=== PATIENT | male | born 1955 | race Caucasian/White ===

== ENCOUNTER 2019-12-31 17:28 | Inpatient (IN) | payer MEDICARE, MEDICAID, SELFPAY ==
--- NOTE | ~2019-12-31 | US_ITS ---
EXAMINATION: US arterial ankle brachial ind DATE: 01/01/2020 13:26 INDICATION: Redness of both anterior lower legs. Diabetes. Hypertension. Smoker. TECHNIQUE: Segmental pressures and plethysmographic and Doppler waveforms of the brachial and lower e xtremity arteries were obtained. COMPARISON: None. FINDINGS: Right and left brachial artery pressures of 109 mm Hg and 106 mm Hg, respectively, are concordant (no rmal difference <= 30 mmHg). The right ankle-brachial index (WATSON) is 1.00 (normal >= 0.9-1.0). The right great toe-brachial index (TBI) is 1.19 (normal >= 0.65). Arterial Doppler waveforms are biphasic. The left WATSON is 1.09. The left TBI is 1.25. Arterial Doppler waveforms are biphasic. IMPRESSION: Bilateral normal WATSON and TBI Reviewed, dictated and finalized at Location [facility]. Reviewed, dictated and finalized at location B.
--- NOTE | ~2019-12-31 | XR_ITS ---
EXAMINATION: XR foot LT min 3V EXAM DATE: 12/31/2019 18:41 INDICATION: Infection, left foot pain, large ulceration. Diabetes. TECHNIQUE: Left foot dorsoplantar, lateral and oblique projections obtained and reviewed. There is n o prior study for comparison. FINDINGS: Left metatarsal bones unremarkable. There are no acute fractures or dislocations identifie d. There is no subcutaneous gas. Large amount of swelling suspected over the dorsal aspect of the m etatarsal bones. There are no bony erosions identified. There are no radiopaque foreign bodies. IMPRESSION: 1. XR foot LT min 3V exam without acute osseous findings. 2. Soft tissue swelling. Reviewed, dictated and finalized at location A.
--- NOTE | ~2019-12-31 | US_ITS ---
EXAMINATION: US venous doppler [facility] DATE: 01/01/2020 13:25 INDICATION: Left lower limb pain. TECHNIQUE: Grayscale ultrasound images without and with compression and Doppler ultrasound images of the bilateral lower extremity veins were obtained. COMPARISON: None. FINDINGS: The visualized portions of right common femoral vein, profunda (deep) femoral vein, femoral vein, pop liteal vein, peroneal veins, posterior tibial veins, and greater saphenous vein outflow are patent. The visualized portions of left common femoral vein, profunda femoral vein, femoral vein, popliteal v ein, peroneal veins, posterior tibial veins, and greater saphenous vein outflow are patent. IMPRESSION: 1. No deep venous thrombosis. Reviewed, dictated and finalized at location A.
[2019-12-31 17:28] VITALS: BP 148/69; PULSE 75; RESP 18; TEMP 36.6; O2SAT 94
--- NOTE | 2019-12-31 17:56 | ED.LOWEXIN ---
HPI - Extremity Injury (Lower) General Chief Complaint: Extremity Injury, Lower Stated Complaint: foot pain x 2 months Time Seen by Provider: 12/31/19 17:51 Source: patient Mode of arrival: EMS Limitations: no limitations History of Present Illness HPI Narrative: A 64 y/o male presents to the ED, via EMS, with c/o left foot pain. Pt states that the left foot pain started 2 months ago and has been constant since. He notes that he currently has home health and they recently told him he cannot take a shower or get his left foot wet, but he is unsure why. Pt adds that he has been on multiple antibiotics and has dark black stools. Analisa Becerra NP is his PCP. complaint: foot injury (left) Onset (ago): month(s) (2) Injury: Left: foot Other symptoms: other (dark black stool) Treatments prior to arrival: other (home health) Related Data Home Medications Medication Instructions Recorded Confirmed albuterol sulfate [Ventolin HFA] 2 puff INHALATION QID PRN 12/31/19 aspirin 325 mg PO DAILY 12/31/19 12/31/19 buspirone 15 mg PO BID 12/31/19 clopidogrel 75 mg PO DAILY 12/31/19 ergocalciferol (vitamin D2) 1,250 mcg PO WEEKLY 12/31/19 [Vitamin D2] fenofibrate nanocrystallized 145 mg PO DAILY 12/31/19 qvlzcavullu-vxhsqqjgk-ndqspwxa 1 inh INHALATION DAILY 12/31/19 [Trelegy Ellipta] ijksplrfczg-gfweditdi-nqoszwwv 1 inh INHALATION DAILY 12/31/19 12/31/19 [Trelegy Ellipta] furosemide 40 mg PO BID 12/31/19 gemfibrozil 600 mg PO BID 12/31/19 glimepiride 1 mg PO DAILY 12/31/19 icosapent ethyl [Vascepa] 2 g PO BID 12/31/19 ipratropium-albuterol 3 ml INHALATION Q4H PRN 12/31/19 isosorbide mononitrate 30 mg PO DAILY 12/31/19 isosorbide mononitrate 60 mg PO DAILY 12/31/19 levothyroxine 50 mcg PO DAILY 12/31/19 losartan 25 mg PO DAILY 12/31/19 methylprednisolone 0 mg PO PER PKG DIR 12/31/19 nitroglycerin 0.3 mg SUBLINGUAL Q5M PRN 12/31/19 pregabalin 50 mg PO BID 12/31/19 sertraline 25 mg PO DAILY 12/31/19 spironolactone 25 mg PO DAILY 12/31/19 tamsulosin 0.4 mg PO DAILY 12/31/19 Allergies Allergy/AdvReac Type Severity Reaction Status Date / Time amoxicillin Allergy Unknown Rash Verified 12/31/19 17:43 Review of Systems Review of Systems: All systems reviewed & are unremarkable except as noted in HPI and below Gastrointestinal: Gastrointestinal: Reports melena Musculoskeletal: Musculoskeletal: Reports arthralgias (left foot) [facility] Past Medical History Medical History (Updated 12/31/19 @ 20:50 by Luís Frederick MD) Arthritis Chronic back pain HTN (hypertension) Surgical History Surgical History (Updated 12/31/19 @ 18:02 by Malika Zendejas) History of angioplasty Left leg History of cardiac catheterization Social History Social History (Updated 12/31/19 @ 18:00 by Malika Zendejas) Smoking status: Former smoker Smoking end date: 10/02/16 Gender identity (if verbalized by the patient): Male Exam Const: General: healthy appearing, no acute distress and well developed Nutritional Appearance: obese Orientation/consciousness: patient oriented x3 (alert) and Other orientation findings (Alert) Limitations: no limitations HENMT: Head: normocephalic and atraumatic Ears: external ears normal General nose exam: No nasal discharge present and no epistaxis Face and sinus: face symmetric Mouth: Yes lip normal, Yes tongue normal and Yes moist mucous membranes Throat: other (No exudate, no erythema) Eyes: Conjunctivae: conjunctivae normal Sclera: sclerae normal EOM: EOMs intact bilaterally Neck: Neck: full ROM, no lymphadenopathy and supple Thyroid: thyroid normal Chest: Chest palpation & inspection: no tenderness Resp: Effort & Inspection: normal respiratory effort Auscultation: clear to auscultation bilaterally, no rales, no rhonchi, no wheezes and other (breath sounds equal) Cardio: Rate: regular rate Rhythm: regular rhythm Heart sounds: no gallops and no murmurs Peripheral pulses: othe
[2019-12-31 18:53] VITALS: BP 151/80; PULSE 73; RESP 20; O2SAT 95
[2019-12-31 18:54] LABS: Basophils Percent Auto 0.6 % (0.2-1.2); Eosinophils Absolute Auto 0.1 K/mm3 (0-0.3); Eosinophils Percent Auto 1.7 % (0-4.4); Hematocrit 46.6 % (42.0-52.0); Hemoglobin 14.6 g/dL (14.0-18.0); Immature Granulocyte Absolute 0.03 K/mm3 (0.00-0.031); Immature Granulocyte Percent A 0.4 % (0-0.5); Lymphocytes Absolute Auto 1.38 K/mm3 (0.9-3.2); Lymphocytes Percent Auto 19.3 % (18.3-44.2); Mean Corpuscular HGB Conc 31.3 g/dl (32-36); Mean Corpuscular Hemoglobin 29.1 pg (26-34); Mean Corpuscular Volume 92.8 fl (80-100); Mean Platelet Volume 10.3 fl (7.4-10.4); Monocytes Absolute Auto 0.7 K/mm3 (0.1-0.6); Monocytes Percent Auto 9.1 % (2.6-8.5); Neutrophils Absolute Auto 4.9 K/mm3 (1.3-6.7); Neutrophils Percent Auto 68.9 % (45.5-73.1); Platelet Count Result 212 k/mm3 (150-375); Red Blood Count 5.02 M/mm3 (4.6-6.20); Red Cell Distribution Width 14.7 % (11.5-14.5); White Blood Count 7.1 K/mm3 (4.5-10.0)
[2019-12-31 19:06] LABS: Alanine Aminotransferase 14 U/L (4-50); Albumin Level 4.4 g/dL (3.5-5.1); Alkaline Phosphatase 79 U/L (38-126); Aspartate Amino Transferase 33 U/L (17-59); Bilirubin,Total 0.4 mg/dL (0.2-1.3); Blood Urea Nitrogen 22 mg/dL (9-20); Calcium 9.7 mg/dL (8.4-10.2); Carbon Dioxide 34 mmol/L (22-30); Chloride 99 mmol/L (98-107); Estimated CRCL calculation 46 ml/min; Estimated Glomerular Filt Rate 29; Glucose 92 mg/dL (75-110); Sodium 140 mmol/L (137-145)
[2019-12-31] MEDS: SODIUM CHLORIDE 0.9% IV 1,000 ML 60 ML IV CONT (19:41)
[2019-12-31 20:11] VITALS: BP 150/70; PULSE 74; RESP 20; TEMP 36.9; O2SAT 96
[2019-12-31 20:59] VITALS: BP 143/79; PULSE 78; RESP 22; TEMP 36.1; O2SAT 94
[2019-12-31] MEDS: ACETAMINOPHEN 325 MG TABLET 650 MG PO (21:00)
[2019-12-31 21:01] VITALS: BMI 38.9
--- NOTE | 2019-12-31 21:02 | ADMGEN ---
This patient, Yuval Branch I, was admitted to 2 Medical Room 240-. Patient/family oriented to hospital policies and general routines including ID bracelet, bed and alarms, visiting hours, pain management, procedures, bathroom and other care routines, personal items, smoking policy, room service/diet, and visiting hours. Valuables list has been completed. Information on how to activate the Rapid Response Team has been discussed. Patient/Family are encouraged to report perceived risks to care and to ask questions if they do not understand what they are told or what they should do.
[2019-12-31] MEDS: metroNIDAZOLE 500 MG/ISO 100ML 500 MG/100 ML BAG 100 MG IVPB (21:30)
[2019-12-31 22:00] VITALS: BP 143/79; PULSE 78; RESP 22; TEMP 36.1; O2SAT 94
[2019-12-31 23:23] LABS: Glucose Point of Care 81 (65-105)
[2019-12-31] MEDS: IMIPENEM/CILASTATIN SODIUM 250 MG in DEXTROSE 5% 100 ML 300 MG IVPB (23:52)
--- NOTE | 2020-01-01 00:14 | PM.IMHP ---
H&P: HPI History of Present Illness Chief complaint: LEG CELLULITIS Narrative: Yuval Branch I is a 64 year old male who stated that he started having some problems to his left foot back in October. The patient has PTSD and has a provider come to his home as well as a foot doctor. The patient stated back in October was diagnosed with cellulitis by the foot doctor. He stated that he was treated in that he was seen again by the foot doctor last month. He has not followed up since then. He is diabetic. The patient has been in severe pain since October. The patient used to be an IV drug user and did want to use any narcotics. Patient stated he put off coming the hospital as much as possible. He was taking a large dose of Motrin. He has not had a previous history of having any renal disease. Today he came in with severe pain. He said that it felt like his foot had 25 lb of pressure on it and that some air hours foot was 1 other tires. He sees Analisa garcia NP who is a house provider in comes his house to treat him. The patient has had some history of peripheral artery disease with a stent in his right leg. He said he was supposed to have the left 1 done but he could not tolerate the procedure. However he does have a pulse to the left foot and weak went to the right. He has severe pain. Patient has peripheral neuropathy. He is having cramps in his legs. Patient was started on Levaquin and Flagyl. Creatinine is 2.3. Patient has a red area to the left foot with some yellow drainage. No fever or chills. Date of service is 12/31/2019 Review of Systems Review of Systems: Narrative: Patient has PTSD All systems reviewed & are unremarkable except as noted in HPI and below Constitutional: Constitutional: Reports as per HPI and Reports no additional constitutional complaints Eyes: Eyes: Reports as per HPI and Reports no additional eye complaints ENT: Reports system reviewed and no additional complaints, except as documented and Reports Normal hearing present Cardiovascular: Cardiovascular: Reports no additional cardiovascular complaints Respiratory: Respiratory: Reports no additional respiratory complaints and Reports no additional respiratory complaints Gastrointestinal: Gastrointestinal: Reports as per HPI and Reports no additional gastrointestinal complaints Musculoskeletal: Musculoskeletal: Reports no additional musculoskeletal complaints Integumentary/Breasts: Skin/Breast: Reports system reviewed and no additional complaints, except as docu and Reports as per HPI Neurologic: Reports system reviewed and no additional complaints, except as documented, Reports as per HPI and Reports Normal hearing present Psychiatric: Psychiatric: Reports no additional psychiatric complaints and Reports as per HPI Endocrine: Endocrine: Reports no additional endocrine complaints Hematologic/Lymphatic: Hematologic/Lymphatic: Reports no additional hematologic/lymphatic complaints Allergic/Immunologic: Allergic/Immunologic: Reports no additional allergic/immunologic complaints [facility] Past Medical History Medical History (Updated 01/01/20 @ 00:45 by Sarah Ellis NP) Arthritis BPH (benign prostatic hyperplasia) CHF (congestive heart failure), NYHA class I Chronic back pain COPD (chronic obstructive pulmonary disease) DM2 (diabetes mellitus, type 2) Hepatitis Patient stated he was treated HTN (hypertension) Hyperlipidemia Hypothyroidism Neuropathy PAD (peripheral artery disease) Parkinson's disease Pilonidal cyst With multiple surgeries and nonhealing PTSD (post-traumatic stress disorder) Restless leg syndrome Surgical History Surgical History (Updated 01/01/20 @ 00:36 by Sarah Ellis NP) History of angioplasty Left leg History of cardiac catheterization S/P peripheral artery angioplasty with stent placement Family History Family History (Updated 01/01/20 @ 00:37 by Sarah Ellis NP) Father Diabetes mellitus Heart d
[2020-01-01] MEDS: PREGABALIN 50 MG CAPSULE PO ×3 (00:21→23:01)
[2020-01-01] MEDS: busPIRone HCL 5 MG TABLET 15 MG PO ×3 (00:45→17:30)
[2020-01-01 03:54] VITALS: BP 144/78; PULSE 72; RESP 20; TEMP 36.1; O2SAT 96
[2020-01-01] MEDS: IMIPENEM/CILASTATIN SODIUM 250 MG in DEXTROSE 5% 100 ML 300 MG IVPB ×3 (05:34→17:22)
[2020-01-01 05:49] VITALS: BP 144/78; PULSE 68; RESP 20; TEMP 36; O2SAT 95
[2020-01-01 07:54] LABS: Glucose Point of Care 65 (65-105)
[2020-01-01 08:00] VITALS: PULSE 68; RESP 20; O2SAT 95
[2020-01-01 08:04] LABS: Glucose Point of Care 75 (65-105)
[2020-01-01] MEDS: OMEGA 3 POLYUNSAT FATTY ACIDS 1 GM CAP 2 GM PO ×2 (08:18→17:30)
[2020-01-01] MEDS: ISOSORBIDE MONONITRATE 60 MG TAB.ER.24H PO (08:18)
[2020-01-01] MEDS: FENOFIBRATE NANOCRYSTALLIZED 145 MG TABLET PO (08:18)
[2020-01-01] MEDS: SERTRALINE HCL 25 MG TABLET PO (08:19)
[2020-01-01] MEDS: ERGOCALCIFEROL 50,000 UNIT CAPSULE 50000 UNITS PO (08:19)
[2020-01-01] MEDS: TAMSULOSIN HCL 0.4 MG CAPSULE PO (08:20)
[2020-01-01] MEDS: ISOSORBIDE MONONITRATE 30 MG TAB.ER.24H PO (08:20)
[2020-01-01] MEDS: GLIMEPIRIDE 1 MG TABLET PO (08:20)
[2020-01-01] MEDS: CLOPIDOGREL BISULFATE 75 MG TABLET PO (08:20)
[2020-01-01] MEDS: ASPIRIN 325 MG ENTERIC TABLET PO (08:21)
[2020-01-01] MEDS: HYDROMORPHONE HCL 1 MG/ML INJ IV PUSH ×2 (08:21→14:31)
[2020-01-01] MEDS: SODIUM CHLORIDE 0.9% IV 1,000 ML 60 ML IV CONT (08:27)
[2020-01-01 11:48] LABS: Glucose Point of Care 89 (65-105)
[2020-01-01 12:03] LABS: Blood Urea Nitrogen 19 mg/dL (9-20); CRP 5.9 mg/dL (<1.0); Calcium 8.9 mg/dL (8.4-10.2); Carbon Dioxide 26 mmol/L (22-30); Chloride 102 mmol/L (98-107); Estimated CRCL calculation 70 ml/min; Estimated Glomerular Filt Rate 47; Glucose 73 mg/dL (75-110); Potassium 4.2 mmol/L (3.4-5.0); Sodium 137 mmol/L (137-145)
--- NOTE | 2020-01-01 12:19 | PM.IMPN ---
Progress Note: A&P Assessment and Plan (1) Cellulitis of leg: Qualifiers: Laterality: left Qualified Code(s): L03.116 - Cellulitis of left lower limb Code(s): L03.119 - Cellulitis of unspecified part of limb Status: Acute Assessment and Plan: Vanc/Primaxin (2) Chronic foot ulcer: Qualifiers: Laterality: left Non-pressure ulcer stage: unspecified non-pressure ulcer stage Qualified Code(s): L97.529 - Non-pressure chronic ulcer of other part of left foot with unspecified severity Code(s): L97.509 - Non-pressure chronic ulcer of other part of unspecified foot with unspecified severity Status: Chronic Assessment and Plan: Failed outpatient therapy Wound consult Vanc/Primaxin day 1 (3) ARF (acute renal failure): Qualifiers: Acute renal failure type: unspecified Qualified Code(s): N17.9 - Acute kidney failure, unspecified Code(s): N17.9 - Acute kidney failure, unspecified Status: Acute Assessment and Plan: Hold furosemide IVF Baseline creatinine in 2019 was 1.7 F/u lab (4) DM2 (diabetes mellitus, type 2): Qualifiers: Diabetes mellitus retirement insulin use: without intermediate accountant use Diabetes mellitus complication status: with neurologic complications Diabetes mellitus complication detail: with polyneuropathy Qualified Code(s): E11.42 - Type 2 diabetes mellitus with diabetic polyneuropathy Code(s): E11.9 - Type 2 diabetes mellitus without complications Status: Chronic Assessment and Plan: SSI Glimepiride A1c 11, c/w poor control (5) COPD (chronic obstructive pulmonary disease): Qualifiers: COPD type: unspecified COPD Qualified Code(s): J44.9 - Chronic obstructive pulmonary disease, unspecified Code(s): J44.9 - Chronic obstructive pulmonary disease, unspecified Status: Chronic Assessment and Plan: Continue with the inhalers from home (6) PTSD (post-traumatic stress disorder): Code(s): F43.10 - Post-traumatic stress disorder, unspecified Status: Chronic Assessment and Plan: Continue with BuSpar and Zoloft. (7) BPH (benign prostatic hyperplasia): Qualifiers: Lower urinary tract symptom presence: symptoms present Lower urinary tract symptom detail: unspecified Qualified Code(s): N40.1 - Benign prostatic hyperplasia with lower urinary tract symptoms Code(s): N40.0 - Benign prostatic hyperplasia without lower urinary tract symptoms Status: Chronic Assessment and Plan: Continue with tamsulosin (8) Hyperlipidemia: Qualifiers: Hyperlipidemia type: unspecified Qualified Code(s): E78.5 - Hyperlipidemia, unspecified Code(s): E78.5 - Hyperlipidemia, unspecified Status: Chronic Assessment and Plan: Continue with [place] 3, gemfibrozil (9) Neuropathy: Code(s): G62.9 - Polyneuropathy, unspecified Status: Chronic Assessment and Plan: Continue with Lyrica. (10) Restless leg syndrome: Code(s): G25.81 - Restless legs syndrome Status: Chronic Assessment and Plan: Continue Lyrica. (11) CHF (congestive heart failure), NYHA class I: Qualifiers: Congestive heart failure type: diastolic Congestive heart failure chronicity: chronic Qualified Code(s): I50.32 - Chronic diastolic (congestive) heart failure Code(s): I50.9 - Heart failure, unspecified Status: Chronic Assessment and Plan: Holding Lasix due to acute renal failure. (12) Hypothyroidism: Qualifiers: Hypothyroidism type: acquired Qualified Code(s): E03.9 - Hypothyroidism, unspecified Code(s): E03.9 - Hypothyroidism, unspecified Status: Chronic Assessment and Plan: Continue levothyroxine (13) PAD (peripheral artery disease): Code(s): I73.9 - Peripheral vascular disease, unspecified Status: Chronic Asses
[2020-01-01] MEDS: SILVERGEL (ELTA) 45 ML 1 APPLIC TOPICAL (12:28)
[2020-01-01 14:00] VITALS: BP 121/56; PULSE 72; RESP 16; TEMP 36.6; O2SAT 95
--- NOTE | 2020-01-01 15:46 | PCDIET ---
Spoke with patient today per his request. He c/o getting a cold cheeseburger with unmelted cheese and cold fries. He also is on a heart healthy diet and states the MD told him he could have a [facility] diet. I spoke with RN who called MD and diet has now been changed. Details regarding meals will be shared with kitchen management.
[2020-01-01] MEDS: gemfibroziL 600 MG TABLET PO (17:31)
[2020-01-01 18:06] LABS: Glucose Point of Care 97 (65-105)
[2020-01-01 22:00] VITALS: BP 137/70; PULSE 74; RESP 20; TEMP 36.1; O2SAT 92
[2020-01-02 00:25] LABS: Glucose Point of Care 143 (65-105)
[2020-01-02] MEDS: IMIPENEM/CILASTATIN SODIUM 250 MG in DEXTROSE 5% 100 ML 300 MG IVPB ×4 (00:54→18:13)
[2020-01-02] MEDS: ACETAMINOPHEN 325 MG TABLET 650 MG PO (01:42)
[2020-01-02 05:50] LABS: Alanine Aminotransferase 14 U/L (4-50); Albumin Level 3.7 g/dL (3.5-5.1); Alkaline Phosphatase 57 U/L (38-126); Aspartate Amino Transferase 34 U/L (17-59); Basophils Percent Auto 0.4 % (0.2-1.2); Bilirubin,Total 0.3 mg/dL (0.2-1.3); Blood Urea Nitrogen 12 mg/dL (9-20); Carbon Dioxide 32 mmol/L (22-30); Chloride 102 mmol/L (98-107); Eosinophils Absolute Auto 0.2 K/mm3 (0-0.3); Eosinophils Percent Auto 3.8 % (0-4.4); Estimated CRCL calculation 86 ml/min; Estimated Glomerular Filt Rate > 60; Glucose 91 mg/dL (75-110); Hematocrit 45.3 % (42.0-52.0); Hemoglobin 13.9 g/dL (14.0-18.0); Immature Granulocyte Absolute 0.05 K/mm3 (0.00-0.031); Immature Granulocyte Percent A 0.9 % (0-0.5); Lymphocytes Absolute Auto 1.08 K/mm3 (0.9-3.2); Lymphocytes Percent Auto 19.7 % (18.3-44.2); Magnesium 2.3 mg/dL (1.6-2.3); Mean Corpuscular HGB Conc 30.7 g/dl (32-36); Mean Corpuscular Hemoglobin 28.8 pg (26-34); Mean Corpuscular Volume 93.8 fl (80-100); Mean Platelet Volume 10.4 fl (7.4-10.4); Monocytes Absolute Auto 0.5 K/mm3 (0.1-0.6); Monocytes Percent Auto 9.3 % (2.6-8.5); Neutrophils Absolute Auto 3.6 K/mm3 (1.3-6.7); Neutrophils Percent Auto 65.9 % (45.5-73.1); Platelet Count Result 189 k/mm3 (150-375); Potassium 4.2 mmol/L (3.4-5.0); Red Blood Count 4.83 M/mm3 (4.6-6.20); Red Cell Distribution Width 14.5 % (11.5-14.5); Sodium 139 mmol/L (137-145); White Blood Count 5.5 K/mm3 (4.5-10.0)
[2020-01-02] MEDS: PREGABALIN 50 MG CAPSULE PO ×3 (05:51→23:00)
[2020-01-02] MEDS: LEVOTHYROXINE SODIUM 50 MCG TABLET PO (05:52)
[2020-01-02] MEDS: gemfibroziL 600 MG TABLET PO ×2 (05:52→16:12)
[2020-01-02 06:00] VITALS: BP 139/69; PULSE 83; RESP 20; TEMP 36.1; O2SAT 95
[2020-01-02] MEDS: SODIUM CHLORIDE 0.9% IV 1,000 ML 60 ML IV CONT (06:36)
[2020-01-02 07:38] LABS: Free T4 Free Thyroxine Reflex 0.83 ng/dL (0.78-2.19)
[2020-01-02 07:45] LABS: Glucose Point of Care 90 (65-105)
[2020-01-02] MEDS: busPIRone HCL 5 MG TABLET 15 MG PO ×2 (08:14→18:13)
[2020-01-02] MEDS: CLOPIDOGREL BISULFATE 75 MG TABLET PO (08:17)
[2020-01-02] MEDS: ASPIRIN 325 MG ENTERIC TABLET PO (08:17)
[2020-01-02] MEDS: SERTRALINE HCL 25 MG TABLET PO (08:17)
[2020-01-02] MEDS: FENOFIBRATE NANOCRYSTALLIZED 145 MG TABLET PO (08:17)
[2020-01-02] MEDS: TAMSULOSIN HCL 0.4 MG CAPSULE PO (08:17)
[2020-01-02] MEDS: ISOSORBIDE MONONITRATE 60 MG TAB.ER.24H PO (08:17)
[2020-01-02] MEDS: GLIMEPIRIDE 1 MG TABLET PO (08:17)
[2020-01-02] MEDS: OMEGA 3 POLYUNSAT FATTY ACIDS 1 GM CAP 2 GM PO ×2 (08:17→18:13)
[2020-01-02] MEDS: SILVERGEL (ELTA) 45 ML 1 APPLIC TOPICAL (08:18)
[2020-01-02] MEDS: ISOSORBIDE MONONITRATE 30 MG TAB.ER.24H PO (08:19)
[2020-01-02 08:28] LABS: Total Triiodothyronine (T3) 0.97 NG/ML (0.97-1.69)
[2020-01-02 11:50] LABS: Glucose Point of Care 116 (65-105)
--- NOTE | 2020-01-02 12:39 | PM.IMPN ---
Progress Note: A&P Assessment and Plan (1) Cellulitis of leg: Qualifiers: Laterality: left Qualified Code(s): L03.116 - Cellulitis of left lower limb Code(s): L03.119 - Cellulitis of unspecified part of limb Status: Acute Assessment and Plan: Vanc/Primaxin (2) Chronic foot ulcer: Qualifiers: Laterality: left Non-pressure ulcer stage: unspecified non-pressure ulcer stage Qualified Code(s): L97.529 - Non-pressure chronic ulcer of other part of left foot with unspecified severity Code(s): L97.509 - Non-pressure chronic ulcer of other part of unspecified foot with unspecified severity Status: Chronic Assessment and Plan: Failed outpatient therapy Wound consult Vanc/Primaxin day 2 (goal is to discharge on day 5, then switch to PO Bactrim DS). 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 insulin use: without fci use Diabetes mellitus complication status: with neurologic complications Diabetes mellitus complication detail: with polyneuropathy Qualified Code(s): E11.42 - Type 2 diabetes mellitus with diabetic polyneuropathy Code(s): E11.9 - Type 2 diabetes mellitus without complications Status: Chronic Assessment and Plan: SSI Glimepiride 4/2 added metformin A1c 11, c/w poor control (5) COPD (chronic obstructive pulmonary disease): Qualifiers: COPD type: unspecified COPD Qualified Code(s): J44.9 - Chronic obstructive pulmonary disease, unspecified Code(s): J44.9 - Chronic obstructive pulmonary disease, unspecified Status: Chronic Assessment and Plan: Continue with the inhalers from home (6) PTSD (post-traumatic stress disorder): Code(s): F43.10 - Post-traumatic stress disorder, unspecified Status: Chronic Assessment and Plan: Continue with BuSpar and Zoloft. (7) BPH (benign prostatic hyperplasia): Qualifiers: Lower urinary tract symptom presence: symptoms present Lower urinary tract symptom detail: unspecified Qualified Code(s): N40.1 - Benign prostatic hyperplasia with lower urinary tract symptoms Code(s): N40.0 - Benign prostatic hyperplasia without lower urinary tract symptoms Status: Chronic Assessment and Plan: Continue with tamsulosin (8) Hyperlipidemia: Qualifiers: Hyperlipidemia type: unspecified Qualified Code(s): E78.5 - Hyperlipidemia, unspecified Code(s): E78.5 - Hyperlipidemia, unspecified Status: Chronic Assessment and Plan: Continue with [place] 3, gemfibrozil (9) Neuropathy: Code(s): G62.9 - Polyneuropathy, unspecified Status: Chronic Assessment and Plan: Continue with Lyrica. (10) Restless leg syndrome: Code(s): G25.81 - Restless legs syndrome Status: Chronic Assessment and Plan: Continue Lyrica. (11) CHF (congestive heart failure), NYHA class I: Qualifiers: Congestive heart failure type: diastolic Congestive heart failure chronicity: chronic Qualified Code(s): I50.32 - Chronic diastolic (congestive) heart failure Code(s): I50.9 - Heart failure, unspecified Status: Chronic Assessment and Plan: Resume furosemide (12) Hypothyroidism: Qualifiers: Hypothyroidism type: acquired Qualified Code(s): E03.9 - Hypothyroidism, unspecified Code(s): E03.9 - Hypothyroidism, unspecified Status: Chronic Assessment and Plan: Continue levothyroxine (13) PAD (peripheral artery disease): Code(s): I73.9 - Periphe
[2020-01-02 14:00] VITALS: BP 110/66; PULSE 80; RESP 20; TEMP 36.7; O2SAT 95
[2020-01-02] MEDS: FUROSEMIDE 40 MG TABLET PO (18:13)
[2020-01-02] MEDS: HYDROMORPHONE HCL 1 MG/ML INJ IV PUSH (20:48)
[2020-01-02 22:00] VITALS: BP 108/54; PULSE 76; RESP 16; TEMP 36.9; O2SAT 95
[2020-01-03] MEDS: IMIPENEM/CILASTATIN SODIUM 250 MG in DEXTROSE 5% 100 ML 300 MG IVPB ×4 (01:02→17:15)
[2020-01-03] MEDS: LEVOTHYROXINE SODIUM 50 MCG TABLET PO (05:49)
[2020-01-03] MEDS: gemfibroziL 600 MG TABLET PO ×2 (05:49→17:22)
[2020-01-03] MEDS: PREGABALIN 50 MG CAPSULE PO ×3 (05:50→21:18)
[2020-01-03 06:00] VITALS: BP 142/62; PULSE 77; RESP 18; TEMP 35.9; O2SAT 94
[2020-01-03 08:00] VITALS: PULSE 77; RESP 18; O2SAT 94
[2020-01-03] MEDS: CLOPIDOGREL BISULFATE 75 MG TABLET PO (09:02)
[2020-01-03] MEDS: FENOFIBRATE NANOCRYSTALLIZED 145 MG TABLET PO (09:02)
[2020-01-03] MEDS: ISOSORBIDE MONONITRATE 30 MG TAB.ER.24H PO (09:02)
[2020-01-03] MEDS: SERTRALINE HCL 25 MG TABLET PO (09:02)
[2020-01-03] MEDS: busPIRone HCL 5 MG TABLET 15 MG PO ×2 (09:02→17:22)
[2020-01-03] MEDS: TAMSULOSIN HCL 0.4 MG CAPSULE PO (09:02)
[2020-01-03] MEDS: GLIMEPIRIDE 1 MG TABLET PO (09:02)
[2020-01-03] MEDS: ISOSORBIDE MONONITRATE 60 MG TAB.ER.24H PO (09:03)
[2020-01-03] MEDS: OMEGA 3 POLYUNSAT FATTY ACIDS 1 GM CAP 2 GM PO ×2 (09:03→17:20)
[2020-01-03] MEDS: FUROSEMIDE 40 MG TABLET PO ×2 (09:03→17:22)
[2020-01-03] MEDS: SILVERGEL (ELTA) 45 ML 1 APPLIC TOPICAL (09:06)
[2020-01-03] MEDS: ASPIRIN 325 MG ENTERIC TABLET PO (10:33)
--- NOTE | 2020-01-03 10:38 | PM.IMPN ---
Progress Note: A&P Assessment and Plan (1) Cellulitis of leg: Qualifiers: Laterality: left Qualified Code(s): L03.116 - Cellulitis of left lower limb Code(s): L03.119 - Cellulitis of unspecified part of limb Status: Acute Assessment and Plan: Vanc/Primaxin, Day #3/5. Continue monitoring healing. (2) Chronic foot ulcer: Qualifiers: Laterality: left Non-pressure ulcer stage: unspecified non-pressure ulcer stage Qualified Code(s): L97.529 - Non-pressure chronic ulcer of other part of left foot with unspecified severity Code(s): L97.509 - Non-pressure chronic ulcer of other part of unspecified foot with unspecified severity Status: Chronic Assessment and Plan: Failed outpatient therapy Wound consult Vanc/Primaxin day 3 (goal is to discharge on day 5, then switch to PO Bactrim DS). Wound culture came back with growth of Pseudomonas aeruginosa that is pansensitive. (3) ARF (acute renal failure): Qualifiers: Acute renal failure type: unspecified Qualified Code(s): N17.9 - Acute kidney failure, unspecified Code(s): N17.9 - Acute kidney failure, unspecified Status: Acute Assessment and Plan: D/c IVF Baseline creatinine in 2019 was 1.7 4/2 creatinine 1.2 F/u lab in the AM. (4) DM2 (diabetes mellitus, type 2): Qualifiers: Diabetes mellitus complication detail: with polyneuropathy Diabetes mellitus complication status: with neurologic complications Diabetes mellitus shelter insulin use: without manager terminal use Qualified Code(s): E11.42 - Type 2 diabetes mellitus with diabetic polyneuropathy Code(s): E11.9 - Type 2 diabetes mellitus without complications Status: Chronic Assessment and Plan: SSI Glimepiride 4/2 added metformin A1c 11, c/w poor control (5) COPD (chronic obstructive pulmonary disease): Qualifiers: COPD type: unspecified COPD Qualified Code(s): J44.9 - Chronic obstructive pulmonary disease, unspecified Code(s): J44.9 - Chronic obstructive pulmonary disease, unspecified Status: Chronic Assessment and Plan: Continue with the inhalers from home (6) PTSD (post-traumatic stress disorder): Code(s): F43.10 - Post-traumatic stress disorder, unspecified Status: Chronic Assessment and Plan: Continue with BuSpar and Zoloft. (7) BPH (benign prostatic hyperplasia): Qualifiers: Lower urinary tract symptom detail: unspecified Lower urinary tract symptom presence: symptoms present Qualified Code(s): N40.1 - Benign prostatic hyperplasia with lower urinary tract symptoms Code(s): N40.0 - Benign prostatic hyperplasia without lower urinary tract symptoms Status: Chronic Assessment and Plan: Continue with tamsulosin (8) Hyperlipidemia: Qualifiers: Hyperlipidemia type: unspecified Qualified Code(s): E78.5 - Hyperlipidemia, unspecified Code(s): E78.5 - Hyperlipidemia, unspecified Status: Chronic Assessment and Plan: Continue with [place] 3, gemfibrozil (9) Neuropathy: Code(s): G62.9 - Polyneuropathy, unspecified Status: Chronic Assessment and Plan: Continue with Lyrica. (10) Restless leg syndrome: Code(s): G25.81 - Restless legs syndrome Status: Chronic Assessment and Plan: Continue Lyrica. (11) CHF (congestive heart failure), NYHA class I: Qualifiers: Congestive heart failure chronicity: chronic Congestive heart failure type: diastolic Qualified Code(s): I50.32 - Chronic diastolic (congestive) heart failure Code(s): I50.9 - Heart failure, unspecified Status: Chronic Assessment and Plan: Resume furosemide (12) Hypothyroidism: Qualifiers: Hypothyroidism type: acquired Qualified Code(s): E03.9 - Hypothyroidism, unspecified Code(s): E03.9 - Hypothyroidism, unspecified
[2020-01-03 11:50] LABS: Vancomycin Trough 37.3 ug/mL (10.0-20.0)
[2020-01-03] MEDS: HYDROMORPHONE HCL 1 MG/ML INJ IV PUSH ×2 (12:19→21:17)
[2020-01-03 14:00] VITALS: BP 129/100; PULSE 80; RESP 16; TEMP 37.1; O2SAT 93
[2020-01-03 21:47] LABS: Vancomycin Trough 25.5 ug/mL (10.0-20.0)
[2020-01-03 22:00] VITALS: BP 115/69; PULSE 76; RESP 20; TEMP 35.4; O2SAT 90
[2020-01-03] MEDS: ALBUTEROL SULFATE (*SP) AEROSOL 1 PUFF 2 PUFF INHALATION (22:30)
[2020-01-04] MEDS: IMIPENEM/CILASTATIN SODIUM 250 MG in DEXTROSE 5% 100 ML 300 MG IVPB ×2 (00:04→05:26)
[2020-01-04] MEDS: gemfibroziL 600 MG TABLET PO ×2 (05:26→17:22)
[2020-01-04] MEDS: PREGABALIN 50 MG CAPSULE PO ×3 (05:26→22:05)
[2020-01-04] MEDS: LEVOTHYROXINE SODIUM 50 MCG TABLET PO (05:27)
[2020-01-04 05:37] LABS: Hematocrit 41.9 % (42.0-52.0); Hemoglobin 13.3 g/dL (14.0-18.0); Mean Corpuscular HGB Conc 31.7 g/dl (32-36); Mean Corpuscular Volume 91.3 fl (80-100); Platelet Count Result 192 k/mm3 (150-375); Red Blood Count 4.59 M/mm3 (4.6-6.20); Red Cell Distribution Width 14.6 % (11.5-14.5); White Blood Count 5.2 K/mm3 (4.5-10.0)
[2020-01-04 05:59] VITALS: BP 117/69; PULSE 90; RESP 20; TEMP 35.9; O2SAT 92
[2020-01-04 06:17] LABS: Blood Urea Nitrogen 12 mg/dL (9-20); Calcium 8.9 mg/dL (8.4-10.2); Carbon Dioxide 33 mmol/L (22-30); Chloride 97 mmol/L (98-107); Estimated CRCL calculation 94 ml/min; Estimated Glomerular Filt Rate > 60; Glucose 131 mg/dL (75-110); Sodium 137 mmol/L (137-145)
[2020-01-04 06:40] LABS: Vancomycin Random 19.6 ug/mL (10-20)
[2020-01-04] MEDS: SERTRALINE HCL 25 MG TABLET PO (08:50)
[2020-01-04] MEDS: FENOFIBRATE NANOCRYSTALLIZED 145 MG TABLET PO (08:50)
[2020-01-04] MEDS: OMEGA 3 POLYUNSAT FATTY ACIDS 1 GM CAP 2 GM PO ×2 (08:50→17:21)
[2020-01-04] MEDS: ISOSORBIDE MONONITRATE 60 MG TAB.ER.24H PO (08:51)
[2020-01-04] MEDS: ISOSORBIDE MONONITRATE 30 MG TAB.ER.24H PO (08:51)
[2020-01-04] MEDS: FUROSEMIDE 40 MG TABLET PO ×2 (08:51→17:22)
[2020-01-04] MEDS: busPIRone HCL 5 MG TABLET 15 MG PO ×2 (08:51→17:22)
[2020-01-04] MEDS: ASPIRIN 325 MG ENTERIC TABLET PO (08:51)
[2020-01-04] MEDS: CLOPIDOGREL BISULFATE 75 MG TABLET PO (08:51)
[2020-01-04] MEDS: GLIMEPIRIDE 1 MG TABLET PO (08:51)
[2020-01-04] MEDS: TAMSULOSIN HCL 0.4 MG CAPSULE PO (08:51)
--- NOTE | 2020-01-04 11:42 | PM.IMPN ---
Progress Note: A&P Assessment and Plan (1) Cellulitis of leg: Qualifiers: Laterality: left Qualified Code(s): L03.116 - Cellulitis of left lower limb Code(s): L03.119 - Cellulitis of unspecified part of limb Status: Acute Assessment and Plan: Vanc/Primaxin, Day #3/5. Continue monitoring healing. (2) Chronic foot ulcer: Qualifiers: Laterality: left Non-pressure ulcer stage: unspecified non-pressure ulcer stage Qualified Code(s): L97.529 - Non-pressure chronic ulcer of other part of left foot with unspecified severity Code(s): L97.509 - Non-pressure chronic ulcer of other part of unspecified foot with unspecified severity Status: Chronic Assessment and Plan: Failed outpatient therapy Wound consult Vanc/Primaxin day 3 (goal is to discharge on day 5, then switch to PO Bactrim DS). Wound culture came back with growth of Pseudomonas aeruginosa that is pansensitive. (3) ARF (acute renal failure): Qualifiers: Acute renal failure type: unspecified Qualified Code(s): N17.9 - Acute kidney failure, unspecified Code(s): N17.9 - Acute kidney failure, unspecified Status: Acute Assessment and Plan: D/c IVF Baseline creatinine in 2019 was 1.7 4/2 creatinine 1.2 F/u lab in the AM. (4) DM2 (diabetes mellitus, type 2): Qualifiers: Diabetes mellitus intermediate manager insulin use: without intermediate manager use Diabetes mellitus complication status: with neurologic complications Diabetes mellitus complication detail: with polyneuropathy Qualified Code(s): E11.42 - Type 2 diabetes mellitus with diabetic polyneuropathy Code(s): E11.9 - Type 2 diabetes mellitus without complications Status: Chronic Assessment and Plan: SSI Glimepiride 4/2 added metformin A1c 11, c/w poor control (5) COPD (chronic obstructive pulmonary disease): Qualifiers: COPD type: unspecified COPD Qualified Code(s): J44.9 - Chronic obstructive pulmonary disease, unspecified Code(s): J44.9 - Chronic obstructive pulmonary disease, unspecified Status: Chronic Assessment and Plan: Continue with the inhalers from home (6) PTSD (post-traumatic stress disorder): Code(s): F43.10 - Post-traumatic stress disorder, unspecified Status: Chronic Assessment and Plan: Continue with BuSpar and Zoloft. (7) BPH (benign prostatic hyperplasia): Qualifiers: Lower urinary tract symptom presence: symptoms present Lower urinary tract symptom detail: unspecified Qualified Code(s): N40.1 - Benign prostatic hyperplasia with lower urinary tract symptoms Code(s): N40.0 - Benign prostatic hyperplasia without lower urinary tract symptoms Status: Chronic Assessment and Plan: Continue with tamsulosin (8) Hyperlipidemia: Qualifiers: Hyperlipidemia type: unspecified Qualified Code(s): E78.5 - Hyperlipidemia, unspecified Code(s): E78.5 - Hyperlipidemia, unspecified Status: Chronic Assessment and Plan: Continue with [place] 3, gemfibrozil (9) Neuropathy: Code(s): G62.9 - Polyneuropathy, unspecified Status: Chronic Assessment and Plan: Continue with Lyrica. (10) Restless leg syndrome: Code(s): G25.81 - Restless legs syndrome Status: Chronic Assessment and Plan: Continue Lyrica. (11) CHF (congestive heart failure), NYHA class I: Qualifiers: Congestive heart failure type: diastolic Congestive heart failure chronicity: chronic Qualified Code(s): I50.32 - Chronic diastolic (congestive) heart failure Code(s): I50.9 - Heart failure, unspecified Status: Chronic Assessment and Plan: Resume furosemide (12) Hypothyroidism: Qualifiers: Hypothyroidism type: acquired Qualified Code(s): E03.9 - Hypothyroidism, unspecified Code(s): E03.9 - Hypothyroidism, unspecified
--- NOTE | 2020-01-04 12:30 | PC.NURSE ---
Dr. Bernabe henry to hold Ellipta from home until discharge. Medication is a NF medication and patient does not have anyone available to bring medication.
[2020-01-04 14:00] VITALS: BP 120/69; PULSE 87; RESP 18; TEMP 36.5; O2SAT 94
[2020-01-04] MEDS: IMIPENEM/CILASTATIN SODIUM 250 MG in DEXTROSE 5% 100 ML 150 MG IVPB ×2 (14:36→17:58)
[2020-01-04] MEDS: SILVERGEL (ELTA) 45 ML 1 APPLIC TOPICAL (14:58)
[2020-01-04 21:42] LABS: Vancomycin Trough 13.3 ug/mL (10.0-20.0)
[2020-01-04 22:00] VITALS: BP 133/61; PULSE 82; RESP 16; TEMP 36.1; O2SAT 90
[2020-01-05] MEDS: IMIPENEM/CILASTATIN SODIUM 250 MG in DEXTROSE 5% 100 ML 100 MG IVPB ×2 (00:32→06:14)
[2020-01-05 05:49] VITALS: BP 145/75; PULSE 79; RESP 20; TEMP 36; O2SAT 94
[2020-01-05] MEDS: PREGABALIN 50 MG CAPSULE PO (06:15)
[2020-01-05] MEDS: gemfibroziL 600 MG TABLET PO (06:16)
[2020-01-05] MEDS: LEVOTHYROXINE SODIUM 50 MCG TABLET PO (06:16)
[2020-01-05] MEDS: TAMSULOSIN HCL 0.4 MG CAPSULE PO (08:53)
[2020-01-05] MEDS: ASPIRIN 325 MG ENTERIC TABLET PO (08:53)
[2020-01-05] MEDS: ISOSORBIDE MONONITRATE 30 MG TAB.ER.24H PO (08:53)
[2020-01-05] MEDS: CLOPIDOGREL BISULFATE 75 MG TABLET PO (08:53)
[2020-01-05] MEDS: busPIRone HCL 5 MG TABLET 15 MG PO (08:53)
[2020-01-05] MEDS: FENOFIBRATE NANOCRYSTALLIZED 145 MG TABLET PO (08:53)
[2020-01-05] MEDS: GLIMEPIRIDE 1 MG TABLET PO (08:53)
[2020-01-05] MEDS: ISOSORBIDE MONONITRATE 60 MG TAB.ER.24H PO (08:53)
[2020-01-05] MEDS: SERTRALINE HCL 25 MG TABLET PO (08:53)
[2020-01-05] MEDS: FUROSEMIDE 40 MG TABLET PO (08:53)
[2020-01-05] MEDS: OMEGA 3 POLYUNSAT FATTY ACIDS 1 GM CAP 2 GM PO (08:53)
[2020-01-05] MEDS: SILVERGEL (ELTA) 45 ML 1 APPLIC TOPICAL (08:54)
--- NOTE | 2020-01-05 10:22 | PM.DS ---
DS: Diagnosis Admitting Diagnosis Admitting Diagnosis: Cellulitis of left lower limb Discharge Diagnosis (1) Cellulitis of leg: Qualifiers: Laterality: left Qualified Code(s): L03.116 - Cellulitis of left lower limb Code(s): L03.119 - Cellulitis of unspecified part of limb Status: Acute Assessment and Plan: Vanc/Primaxin, Day #5/5. Continue monitoring healing. (2) Chronic foot ulcer: Qualifiers: Laterality: left Non-pressure ulcer stage: unspecified non-pressure ulcer stage Qualified Code(s): L97.529 - Non-pressure chronic ulcer of other part of left foot with unspecified severity Code(s): L97.509 - Non-pressure chronic ulcer of other part of unspecified foot with unspecified severity Status: Chronic Assessment and Plan: Failed outpatient therapy Wound consult Vanc/Primaxin day 3 (goal is to discharge on day 5, then switch to PO Bactrim DS). Wound culture came back with growth of Pseudomonas aeruginosa that is pansensitive. (3) ARF (acute renal failure): Qualifiers: Acute renal failure type: unspecified Qualified Code(s): N17.9 - Acute kidney failure, unspecified Code(s): N17.9 - Acute kidney failure, unspecified Status: Acute Assessment and Plan: D/c IVF Baseline creatinine in 2019 was 1.7 4/2 creatinine 1.2 /5 1.1 (4) DM2 (diabetes mellitus, type 2): Qualifiers: Diabetes mellitus complication detail: with polyneuropathy Diabetes mellitus complication status: with neurologic complications Diabetes mellitus shelter insulin use: without tank terminal gauger use Qualified Code(s): E11.42 - Type 2 diabetes mellitus with diabetic polyneuropathy Code(s): E11.9 - Type 2 diabetes mellitus without complications Status: Chronic Assessment and Plan: SSI Glimepiride 4/2 added metformin A1c 11, c/w poor control (5) COPD (chronic obstructive pulmonary disease): Qualifiers: COPD type: unspecified COPD Qualified Code(s): J44.9 - Chronic obstructive pulmonary disease, unspecified Code(s): J44.9 - Chronic obstructive pulmonary disease, unspecified Status: Chronic Assessment and Plan: Continue with the inhalers from home (6) PTSD (post-traumatic stress disorder): Code(s): F43.10 - Post-traumatic stress disorder, unspecified Status: Chronic Assessment and Plan: Continue with BuSpar and Zoloft. (7) BPH (benign prostatic hyperplasia): Qualifiers: Lower urinary tract symptom detail: unspecified Lower urinary tract symptom presence: symptoms present Qualified Code(s): N40.1 - Benign prostatic hyperplasia with lower urinary tract symptoms Code(s): N40.0 - Benign prostatic hyperplasia without lower urinary tract symptoms Status: Chronic Assessment and Plan: Continue with tamsulosin (8) Hyperlipidemia: Qualifiers: Hyperlipidemia type: unspecified Qualified Code(s): E78.5 - Hyperlipidemia, unspecified Code(s): E78.5 - Hyperlipidemia, unspecified Status: Chronic Assessment and Plan: Continue with [place] 3, gemfibrozil (9) Neuropathy: Code(s): G62.9 - Polyneuropathy, unspecified Status: Chronic Assessment and Plan: Continue with Lyrica. (10) Restless leg syndrome: Code(s): G25.81 - Restless legs syndrome Status: Chronic Assessment and Plan: Continue Lyrica. (11) CHF (congestive heart failure), NYHA class I: Qualifiers: Congestive heart failure chronicity: chronic Congestive heart failure type: diastolic Qualified Code(s): I50.32 - Chronic diastolic (congestive) heart failure Code(s): I50.9 - Heart failure, unspecified Status: Chronic Assessment and Plan: Resume furosemide (12) Hypothyroidism: Qualifiers: Hypothyroidism type: acquired Qualified Code(s): E03.9 - Hypothyroidism, unspecified
[2020-01-05 13:37] VITALS: BP 136/82; PULSE 96; RESP 19; TEMP 36.9; O2SAT 91
== END 2020-01-05 13:45 | disposition home health service (06) | DRG 638 ==
LOC: ANHED 19:05 → ANH2MED 19:37
PROVIDERS: Nurse Practitioner; Physician Assistant; Admitting Provider Internal Medicine; Emergency Provider Emergency Medicine; Visit Provider Internal Medicine
DX: E11.628 Type 2 diabetes mellitus with other skin complications (principal); L03.116 Cellulitis of left lower limb; I50.32 Chronic diastolic (congestive) heart failure; E11.621 Type 2 diabetes mellitus with foot ulcer; L97.529 Non-pressure chronic ulcer of other part of left foot with unspecified severity; N17.9 Acute kidney failure, unspecified; B96.5 Pseudomonas (aeruginosa) (mallei) (pseudomallei) as the cause of diseases classified elsewhere; E11.42 Type 2 diabetes mellitus with diabetic polyneuropathy; J44.9 Chronic obstructive pulmonary disease, unspecified; F43.10 Post-traumatic stress disorder, unspecified; N40.1 Benign prostatic hyperplasia with lower urinary tract symptoms; E78.5 Hyperlipidemia, unspecified; G25.81 Restless legs syndrome; E03.9 Hypothyroidism, unspecified; E11.51 Type 2 diabetes mellitus with diabetic peripheral angiopathy without gangrene; I73.9 Peripheral vascular disease, unspecified; M19.90 Unspecified osteoarthritis, unspecified site; I10 Essential (primary) hypertension; G20 Parkinson's disease; Z95.820 Peripheral vascular angioplasty status with implants and grafts; Z87.891 Personal history of nicotine dependence
CPT/HCPCS: 36415; 73630; 80048; 80053; 80202; 83735; 84439; 84443; 84480; 85025; 85027; 86140; 87040; 87070; 87077; 87186; 87205; 93922; 93970; 96360; 97161; 97165; 99285; A9270; J0743; J1170; J1956; J3010; J3370; J7030

== ENCOUNTER 2020-01-10 16:59 | Inpatient (IN) | payer MEDICARE, MEDICAID, SELFPAY ==
--- NOTE | ~2020-01-10 | XR_ITS ---
EXAMINATION: XR chest 1V portable DATE: 01/11/2020 06:43 INDICATION: Oxygen desaturation. TECHNIQUE: A single frontal view of the chest was obtained. COMPARISON: Chest single view 01/10/2020 FINDINGS: There are airspace opacities in right mid and lower lung zones with a perihilar predominanc e. No pleural effusion or pneumothorax. The heart size is normal. IMPRESSION: 1. Worsened airspace opacities in right mid and lower lung zones suspicious for pneumonia. Reviewed, dictated and finalized at location A.
--- NOTE | ~2020-01-10 | XR_ITS ---
EXAMINATION: XR chest 1V portable DATE: 01/12/2020 13:13 INDICATION: Acute renal failure. TECHNIQUE: A single frontal view of the chest was obtained. COMPARISON: Chest single view 01/11/2020 FINDINGS: The chest demonstrates clear lungs without pneumonia, pleural effusion, or pneumothorax. Th e heart size is normal. IMPRESSION: 1. No acute cardiopulmonary disease. Reviewed, dictated and finalized at location A.
--- NOTE | ~2020-01-10 | XR_ITS ---
XR foot LT min 3V 01/10/2020 18:02 INDICATION: Diabetic foot. Left foot wound. Foot pain. PROCEDURE: 3 views left foot COMPARISON: 12/31/2019 FINDINGS: Fracture, dislocation or subluxation is not identified. Lisfranc joint is intact. There is mild dorsal soft tissue swelling. No evidence for osteomyelitis. No foreign bodies are identified. IMPRESSION: 1: NO ACUTE BONE OR JOINT ABNORMALITY IDENTIFIED. Reviewed, dictated and finalized at location A.
--- NOTE | ~2020-01-10 | XR_ITS ---
XR chest 1V portable 01/10/2020 18:01 Indication: Weakness and dyspnea Procedure: AP portable chest Comparison: Comparison to multiple prior studies sequentially, with oldest reviewed study dated 10/21. Findings: Heart size normal. Patchy right-sided infiltrates. Left lung clear. No pleural effusion or pneumothorax. No acute osseous abnormality. Impression: 1: Patchy right-sided infiltrates, suspicious for pneumonia. Reviewed, dictated and finalized at location A. Impression: 1: Patchy right-sided infiltrates, suspicious for pneumonia.
[2020-01-10 16:46] VITALS: BP 112/48; PULSE 88; RESP 18; TEMP 36.8; O2SAT 92
--- NOTE | 2020-01-10 17:24 | ED.LOWEXIN ---
HPI - Extremity Injury (Lower) General Chief Complaint: Extremity Injury, Lower <Racheal Odonnell PA-C - Last Filed: 01/10/20 19:27> Stated Complaint: Pain in foot <Racheal Odonnell PA-C - Last Filed: 01/10/20 19:27> Source: patient <Racheal Odonnell PA-C - Last Filed: 01/10/20 19:27> Mode of arrival: EMS <Racheal Odonnell PA-C - Last Filed: 01/10/20 19:27> Limitations: no limitations <Racheal Odonnell PA-C - Last Filed: 01/10/20 19:27> History of Present Illness HPI Narrative: This is a 64 year old male that presents to the ER for increasing left foot pain. Reports he was seen here for this and discharged 5 days ago. Reports a wound on his foot for which he was treated with IV antibiotics and then discharged on oral antibiotics. Reports he just checked the wound again today and it looks worse again. Reports increasing pain in the foot as well as generalized weakness today. Denies fever, chest pain, shortness of breath, abdominal pain, vomiting, dysuria or hematuria. <Racheal Odonnell PA-C - Last Filed: 01/10/20 19:27> Related Data Home Medications: Home Medications Medication Instructions Recorded Confirmed Trelegy Ellipta 1 inh INHALATION DAILY 12/31/19 01/10/20 Vascepa 2 g PO BID 12/31/19 01/10/20 albuterol sulfate [Ventolin HFA] 2 puff INHALATION Q4H PRN 12/31/19 01/10/20 aspirin 325 mg PO DAILY 12/31/19 01/10/20 buspirone 15 mg PO BID 12/31/19 01/10/20 clopidogrel 75 mg PO DAILY 12/31/19 01/10/20 ergocalciferol (vitamin D2) 1,250 mcg PO WEEKLY 12/31/19 01/10/20 [Vitamin D2] fenofibrate nanocrystallized 145 mg PO DAILY 12/31/19 01/10/20 furosemide 40 mg PO BID 12/31/19 01/10/20 gemfibrozil 600 mg PO BID 12/31/19 01/10/20 glimepiride 1 mg PO DAILY 12/31/19 01/10/20 ipratropium-albuterol 3 ml INHALATION Q4H PRN 12/31/19 01/10/20 isosorbide mononitrate 30 mg PO DAILY 12/31/19 01/10/20 isosorbide mononitrate 60 mg PO DAILY 12/31/19 01/10/20 levothyroxine 50 mcg PO DAILY 12/31/19 01/10/20 losartan 25 mg PO DAILY 12/31/19 01/10/20 nitroglycerin 0.3 mg SUBLINGUAL Q5M PRN 12/31/19 01/10/20 pregabalin 50 mg PO Q8H 12/31/19 01/10/20 sertraline 25 mg PO DAILY 12/31/19 01/10/20 spironolactone 25 mg PO DAILY 12/31/19 01/10/20 tamsulosin 0.4 mg PO DAILY 12/31/19 01/10/20 hydrocodone-acetaminophen [[place]] 1 tablet PO Q4H PRN 01/10/20 01/10/20 <Racheal Odonnell PA-C - Last Filed: 01/10/20 19:27> Allergies/Adverse Reactions: Allergies Allergy/AdvReac Type Severity Reaction Status Date / Time amoxicillin Allergy Unknown Rash Verified 01/10/20 16:52 <Racheal Odonnell PA-C - Last Filed: 01/10/20 19:27> Review of Systems Review of Systems: Narrative: CONSTITUTIONAL: Denies fever ENT: Denies rhinorrhea, congestion, sore throat CARDIOVASCULAR: Reports edema. Denies chest pain RESPIRATORY: Denies cough or dyspnea. GASTROINTESTINAL: Denies abdominal pain, nausea, vomiting GENITOURINARY: Denies dysuria or hematuria. SKIN: Reports erythema MUSCULOSKELETAL: Reports joint pain, and myalgia. NEUROLOGIC: Reports weakness. Denies numbness <Racheal Odonnell PA-C - Last Filed: 01/10/20 19:27> All systems reviewed & are unremarkable except as noted in HPI and below <Racheal Odonnell PA-C - Last Filed: 01/10/20 19:27> [facility] Past Medical History Medical History: Medical History (Updated 01/10/20 @ 19:25 by Racheal Odonnell PA-C) Arthritis BPH (benign prostatic hyperplasia) CHF (congestive heart failure), NYHA class I Chronic back pain COPD (chronic obstructive pulmonary disease) DM2 (diabetes mellitus, type 2) Hepatitis Patient stated he was treated HTN (hypertension) Hyperlipidemia Hypothyroidism Neuropathy PAD (peripheral artery disease) Parkinson's disease Pilonidal cyst With multiple surgeries and nonhealing PTSD (post-traumatic stress disorder) Restless leg syndrome <Racheal Odonnell PA-C - Last Filed: 01/10/20 19:27> Surgical History Surgical History: Surgic
[2020-01-10 17:58] VITALS: BP 134/61; PULSE 83; RESP 16; O2SAT 95
[2020-01-10 18:10] LABS: Basophils Percent Auto 0.2 % (0.2-1.2); Eosinophils Absolute Auto 0.1 K/mm3 (0-0.3); Eosinophils Percent Auto 0.5 % (0-4.4); Hematocrit 44.6 % (42.0-52.0); Hemoglobin 14.2 g/dL (14.0-18.0); Immature Granulocyte Absolute 0.06 K/mm3 (0.00-0.031); Immature Granulocyte Percent A 0.5 % (0-0.5); Lymphocytes Absolute Auto 1.21 K/mm3 (0.9-3.2); Lymphocytes Percent Auto 9.1 % (18.3-44.2); Mean Corpuscular HGB Conc 31.8 g/dl (32-36); Mean Corpuscular Hemoglobin 29.2 pg (26-34); Mean Corpuscular Volume 91.6 fl (80-100); Mean Platelet Volume 10.6 fl (7.4-10.4); Monocytes Absolute Auto 0.9 K/mm3 (0.1-0.6); Monocytes Percent Auto 7.1 % (2.6-8.5); Neutrophils Percent Auto 82.6 % (45.5-73.1); Platelet Count Result 216 k/mm3 (150-375); Red Blood Count 4.87 M/mm3 (4.6-6.20); Red Cell Distribution Width 15.2 % (11.5-14.5); White Blood Count 13.3 K/mm3 (4.5-10.0)
[2020-01-10 18:26] LABS: Alanine Aminotransferase 13 U/L (4-50); Albumin Level 4.3 g/dL (3.5-5.1); Alkaline Phosphatase 114 U/L (38-126); Aspartate Amino Transferase 28 U/L (17-59); Bilirubin,Total 0.4 mg/dL (0.2-1.3); Blood Urea Nitrogen 26 mg/dL (9-20); CRP > 9.0 mg/dL (<1.0); Calcium 8.8 mg/dL (8.4-10.2); Carbon Dioxide 34 mmol/L (22-30); Chloride 94 mmol/L (98-107); Estimated CRCL calculation 44 ml/min; Estimated Glomerular Filt Rate 36; Glucose 97 mg/dL (75-110); Sodium 136 mmol/L (137-145)
[2020-01-10 18:32] LABS: Add Urine Microscopic? YES; Appearance Urine Clear (Clear); Bilirubin Urine Negative (Negative); Blood Urine Negative (Negative); Color Urine Yellow (Yellow); Glucose Urine UA Negative (Negative); Hyaline Casts Urine 15-19 /lpf; Ketones Urine Negative (Negative); Leukocyte Esterase Ur Negative LEU/UL (Negative); Mucus Urine Rare /lpf; Nitrate Urine Negative (Negative); Protein Urine Negative (Negative); RBC Urine 0-2 /hpf (0-2); Specific Grav Ur 1.018 (1.001-1.035); Squamous Epithelial Cell Urine Occasional /hpf (Few); WBC Urine 0-3 /hpf
[2020-01-10 18:34] LABS: Alveolar/Arterial O2 Gradient 41.8 mmHg; Base Excess ABG 3.2 mEq/l (+/-2.0); Carboxyhemoglobin 1.3 % THb (0-2.0); Device NASAL CANNULA; Fractional Inspired Oxygen 24 %; HCO3 ABG 29.5 mEq/l (22.0-26.0); Methemoglobin ABG 0.3 %THb (0-1.5); Modified Allen's Test Pass; Oxygen Content ABG 18.1 %vol (16.0-22.0); Oxygen Saturation ABG 93.1 % (95.0-100.0); Oxyhemoglobin 90.7 % THb (90.0-100.0); PCO2 ABG 51.3 mmHg (35.0-45.0); PO2 ABG 68.3 mmHg (80.0-100.0); PO2 FiO2 Ratio Arterial Blood 2.85 %; Reduced Hemoglobin 7.7 %THb (0-5.0); Site Drawn LEFT RADIAL; Total Hemoglobin 14.2 g/dL (12.0-18.0); pH ABG 7.377 (7.350-7.450)
[2020-01-10 18:38] LABS: Erythrocyte Sedimentation Rate 5 mm/hr (0-20)
[2020-01-10 18:45] VITALS: BP 139/76; PULSE 83; RESP 20; O2SAT 93
[2020-01-10 18:56] LABS: Lactate Dehydrogenase 400 U/L (313-618); Lactic Acid Reflex 0.9 mmol/L (0.7-2.1)
[2020-01-10] MEDS: MORPHINE SULFATE 4 MG/ML INJ IV PUSH (19:01)
[2020-01-10] MEDS: ONDANSETRON INJ 4 MG/2 ML VIAL IV PUSH (19:01)
[2020-01-10] MEDS: SODIUM CHLORIDE 0.9% IV 1,000 ML 999 ML IV CONT (19:01)
[2020-01-10 19:49] VITALS: BP 139/70; PULSE 79; RESP 20; O2SAT 97
--- NOTE | 2020-01-10 20:25 | ADMGEN ---
This patient, Yuval Branch, was admitted to 2 Medical Room 253-01 @ 2004 . Patient/family oriented to hospital policies and general routines including ID bracelet, bed and alarms, visiting hours, pain management, procedures, bathroom and other care routines, personal items, smoking policy, room service/diet, and visiting hours. Valuables list has been completed. Information on how to activate the Rapid Response Team has been discussed. Patient/Family are encouraged to report perceived risks to care and to ask questions if they do not understand what they are told or what they should do.
[2020-01-10 22:00] VITALS: BP 126/58; PULSE 64; RESP 20; TEMP 36.7; O2SAT 95; BMI 40.5
[2020-01-11] VITALS (10 sets, daily range): BP systolic 118–162; BP diastolic 60–79; PULSE 68–83; RESP 16–24; TEMP 36.3–36.7; O2SAT 88–95
--- NOTE | 2020-01-11 00:17 | PM.IMHP ---
H&P: HPI History of Present Illness Chief complaint: LLE cellulitis, ADILSON Narrative: Yuval Branch is a 64 year old male who I am familiar with. I saw this patient on 01/01/2020 for cellulitis of the left foot. The patient had been discharged on 01/05/2020 with some improvement. On vancomycin and Primaxin for 5 days for cellulitis of the left foot. The patient was placed on Bactrim at that time. The wound culture came back as Pseudomonas aeruginosa that was pansensitive. Patient had also been admitted for acute renal failure. Which had improved last admission. Patient's creatinine is now 1.9 today. Patient still continues to have some redness to the left foot although it does look better than the last time that I saw him. Patient was started back on vancomycin and Primaxin. Has ichthyosis. Patient was started on IV fluids. He was given Zofran for nausea and morphine for discomfort. Date of service is actually 01/10/2020 Review of Systems Review of Systems: All systems reviewed & are unremarkable except as noted in HPI and below Constitutional: Constitutional: Reports as per HPI and Reports no additional constitutional complaints Eyes: Eyes: Reports as per HPI and Reports no additional eye complaints ENT: Reports system reviewed and no additional complaints, except as documented and Reports Normal hearing present Cardiovascular: Cardiovascular: Reports no additional cardiovascular complaints Respiratory: Respiratory: Reports no additional respiratory complaints and Reports no additional respiratory complaints Gastrointestinal: Gastrointestinal: Reports as per HPI and Reports no additional gastrointestinal complaints Musculoskeletal: Musculoskeletal: Reports no additional musculoskeletal complaints Integumentary/Breasts: Skin/Breast: Reports system reviewed and no additional complaints, except as docu and Reports as per HPI Neurologic: Reports system reviewed and no additional complaints, except as documented, Reports as per HPI and Reports Normal hearing present Psychiatric: Psychiatric: Reports no additional psychiatric complaints and Reports as per HPI Endocrine: Endocrine: Reports no additional endocrine complaints Hematologic/Lymphatic: Hematologic/Lymphatic: Reports no additional hematologic/lymphatic complaints Allergic/Immunologic: Allergic/Immunologic: Reports no additional allergic/immunologic complaints [facility] Past Medical History Medical History Arthritis BPH (benign prostatic hyperplasia) CHF (congestive heart failure), NYHA class I Chronic back pain COPD (chronic obstructive pulmonary disease) DM2 (diabetes mellitus, type 2) Hepatitis Patient stated he was treated HTN (hypertension) Hyperlipidemia Hypothyroidism Neuropathy PAD (peripheral artery disease) Parkinson's disease Pilonidal cyst With multiple surgeries and nonhealing PTSD (post-traumatic stress disorder) Restless leg syndrome Surgical History Surgical History (Updated 01/01/20 @ 00:36 by Sarah Ellis NP) History of angioplasty Left leg History of cardiac catheterization S/P peripheral artery angioplasty with stent placement Family History Family History Father Diabetes mellitus Heart disease Mother Cancer Other Unknown family medical history Social History Social History (Updated 01/11/20 @ 00:29 by Sarah Ellis NP) Social History: The patient is . He had 3 children 1 has . Patient is a full code. 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 Smoking status: Former smoker Smoking end date: 10/02/16 Alcohol intake: former Substance use: former Substance use type: does not use Gender identity (if verbalized by the patient): Male Spiritual care concerns: No Agre
[2020-01-11] MEDS: busPIRone HCL 5 MG TABLET 15 MG PO ×3 (01:05→16:08)
[2020-01-11] MEDS: HYDROMORPHONE HCL 1 MG/ML INJ 0.5 MG IV PUSH (03:07)
[2020-01-11] MEDS: LEVOTHYROXINE SODIUM 50 MCG TABLET PO (05:37)
[2020-01-11] MEDS: PREGABALIN 50 MG CAPSULE PO ×3 (05:37→20:38)
[2020-01-11] MEDS: NALOXONE HCL 0.4 MG/ML VIAL IV PUSH (06:15)
[2020-01-11 06:44] LABS: Glucose Point of Care 85 (65-105)
[2020-01-11 08:03] LABS: Glucose Point of Care 93 (65-105)
[2020-01-11 08:12] LABS: Basophils Absolute Auto 0.1 K/mm3 (0.0-0.1); Basophils Percent Auto 0.5 % (0.2-1.2); Eosinophils Absolute Auto 0.1 K/mm3 (0-0.3); Eosinophils Percent Auto 0.8 % (0-4.4); Hematocrit 42.7 % (42.0-52.0); Hemoglobin 13.2 g/dL (14.0-18.0); Immature Granulocyte Absolute 0.06 K/mm3 (0.00-0.031); Immature Granulocyte Percent A 0.6 % (0-0.5); Lymphocytes Absolute Auto 0.78 K/mm3 (0.9-3.2); Lymphocytes Percent Auto 7.7 % (18.3-44.2); Mean Corpuscular HGB Conc 30.9 g/dl (32-36); Mean Corpuscular Hemoglobin 28.8 pg (26-34); Mean Corpuscular Volume 93.2 fl (80-100); Mean Platelet Volume 10.6 fl (7.4-10.4); Monocytes Absolute Auto 0.6 K/mm3 (0.1-0.6); Monocytes Percent Auto 5.5 % (2.6-8.5); Neutrophils Absolute Auto 8.6 K/mm3 (1.3-6.7); Neutrophils Percent Auto 84.9 % (45.5-73.1); Platelet Count Result 192 k/mm3 (150-375); Red Blood Count 4.58 M/mm3 (4.6-6.20); Red Cell Distribution Width 15.2 % (11.5-14.5); White Blood Count 10.2 K/mm3 (4.5-10.0)
[2020-01-11 08:30] LABS: Alanine Aminotransferase 14 U/L (4-50); Alkaline Phosphatase 81 U/L (38-126); Aspartate Amino Transferase 30 U/L (17-59); Bilirubin,Total 0.4 mg/dL (0.2-1.3); Blood Urea Nitrogen 22 mg/dL (9-20); Calcium 8.7 mg/dL (8.4-10.2); Carbon Dioxide 35 mmol/L (22-30); Chloride 96 mmol/L (98-107); Estimated CRCL calculation 71 ml/min; Estimated Glomerular Filt Rate 47; Glucose 98 mg/dL (75-110); Magnesium 2.2 mg/dL (1.6-2.3); Sodium 138 mmol/L (137-145)
[2020-01-11 08:41] LABS: Lactate Dehydrogenase 446 U/L (313-618)
[2020-01-11 08:42] LABS: Potassium 4.7 mmol/L (3.4-5.0)
[2020-01-11] MEDS: FENOFIBRATE NANOCRYSTALLIZED 145 MG TABLET PO (09:35)
[2020-01-11] MEDS: ISOSORBIDE MONONITRATE 30 MG TAB.ER.24H PO (09:35)
[2020-01-11] MEDS: TAMSULOSIN HCL 0.4 MG CAPSULE PO (09:35)
[2020-01-11] MEDS: gemfibroziL 600 MG TABLET PO ×2 (09:35→16:09)
[2020-01-11] MEDS: ISOSORBIDE MONONITRATE 60 MG TAB.ER.24H PO (09:35)
[2020-01-11] MEDS: CLOPIDOGREL BISULFATE 75 MG TABLET PO (09:35)
[2020-01-11] MEDS: OMEGA 3 POLYUNSAT FATTY ACIDS 1 GM CAP 2 GM PO ×2 (09:35→16:08)
[2020-01-11] MEDS: SERTRALINE HCL 25 MG TABLET PO (09:35)
[2020-01-11] MEDS: ASPIRIN 325 MG ENTERIC TABLET PO (09:35)
[2020-01-11] MEDS: SILVERGEL (ELTA) 45 ML 1 APPLIC TOPICAL (09:36)
--- NOTE | 2020-01-11 09:54 | P.PNIM_ITS ---
Progress Note: A&P Assessment and Plan (1) Cellulitis: Qualifiers: Laterality: left Site of cellulitis: extremity Site of cellulitis of extremity: lower extremity Qualified Code(s): L03.116 - Cellulitis of left lower limb Code(s): L03.90 - Cellulitis, unspecified Status: Acute Assessment and Plan: Cellulitis and wound to the left foot. Patient's wound cultures grew Pseudomonas aeruginosa last admission that is pansensitive. Current wound cu lture/gram stain shows no WBCs or organisms on gram stain; culture pending. BC pending. Foot xray shows no acute bone/joint abnormality * Continue with Vanco and Primaxin for now * Consult to Infectious Disease placed; appreciate recommendations. * Consult wound care, although not here on weekends * Monitor * Pain control with Tylenol; avoid narcotics if at all possible (2) Pneumonia: Code(s): J18.9 - Pneumonia, unspecified organism Status: Acute Assessment and Plan: CXR this morning read as Worsened airspace opacities in right mid and lower lung zones suspicious for pneumonia. Patient unable to tell me when his cough developed. Recently admitted/discharged last week. Lymphopenic, LDH, LFTs and ferritin WNL. Consider possible COVID as well if no improvement with antibiotics. On Vanc and Primaxin for foot cellulitis currently * ID consulted and appreciate recommendations * Continue COPD medications for now * IS, mucinex, supplemental O2 as needed; wean as tolerated * Monitor (3) Acute respiratory failure with hypoxia: Code(s): J96.01 - Acute respiratory failure with hypoxia Status: Acute Assessment and Plan: Likely due to depressed respiratory function due to narcotics vs possible pneumonia on CXR. * Will hold on additional narcan for now as patient appears to be more alert this morning * Wean O2 as tolerated * Patient on vanc and primaxin for cellulitis; some coverage for possible pneumonia. Further input on ID appreciated on antibiotics * Monitor closely (4) ARF (acute renal failure): Qualifiers: Acute renal failure type: unspecified Qualified Code(s): N17.9 - Acute kidney failure, unspecified Code(s): N17.9 - Acute kidney failure, unspecified Status: Acute Assessment and Plan: Cr 1.50 this morning; improvement. Dehydration vs medication induced * Continue with IV fluids * Avoid nephrotoxic agents; renally dose medications * Trend BMP (5) Hypothyroidism: Qualifiers: Hypothyroidism type: acquired Qualified Code(s): E03.9 - Hypothyroi dism, unspecified Code(s): E03.9 - Hypothyroidism, unspecified Status: Chronic Assessment and Plan: TSH wnl * Continue with levothyroxine (6) PAD (peripheral artery disease): Code(s): I73.9 - Peripheral vascular disease, unspecified Status: Chronic Assessment and Plan: Patient has a history of having his stent to 1 of his legs. * Continue with Plavix continue with aspirin (7) CHF (congestive heart failure), NYHA class I: Qualifiers: Congestive heart failure type: diastolic Congestive heart failure chronicity: chronic Qualified Code(s): I50.32 - Chronic diastolic (congestive) heart failure Code(s): I50.9 - Heart failure, unspecified Status: Chronic Assessment and Plan: Appears to be compensated * H
--- NOTE | 2020-01-11 09:54 | PM.IMPN ---
Progress Note: A&P Assessment and Plan (1) Cellulitis: Qualifiers: Laterality: left Site of cellulitis: extremity Site of cellulitis of extremity: lower extremity Qualified Code(s): L03.116 - Cellulitis of left lower limb Code(s): L03.90 - Cellulitis, unspecified Status: Acute Assessment and Plan: Cellulitis and wound to the left foot. Patient's wound cultures grew Pseudomonas aeruginosa last admission that is pansensitive. Current wound culture/gram stain shows no WBCs or organisms on gram stain; culture pending. BC pending. Foot xray shows no acute bone/joint abnormality Continue with Vanco and Primaxin for now Consult to Infectious Disease placed; appreciate recommendations. Consult wound care, although not here on weekends Monitor Pain control with Tylenol; avoid narcotics if at all possible (2) Pneumonia: Code(s): J18.9 - Pneumonia, unspecified organism Status: Acute Assessment and Plan: CXR this morning read as Worsened airspace opacities in right mid and lower lung zones suspicious for pneumonia. Patient unable to tell me when his cough developed. Recently admitted/discharged last week. Lymphopenic, LDH, LFTs and ferritin WNL. Consider possible COVID as well if no improvement with antibiotics. On Vanc and Primaxin for foot cellulitis currently ID consulted and appreciate recommendations Continue COPD medications for now IS, mucinex, supplemental O2 as needed; wean as tolerated Monitor (3) Acute respiratory failure with hypoxia: Code(s): J96.01 - Acute respiratory failure with hypoxia Status: Acute Assessment and Plan: Likely due to depressed respiratory function due to narcotics vs possible pneumonia on CXR. Will hold on additional narcan for now as patient appears to be more alert this morning Wean O2 as tolerated Patient on vanc and primaxin for cellulitis; some coverage for possible pneumonia. Further input on ID appreciated on antibiotics Monitor closely (4) ARF (acute renal failure): Qualifiers: Acute renal failure type: unspecified Qualified Code(s): N17.9 - Acute kidney failure, unspecified Code(s): N17.9 - Acute kidney failure, unspecified Status: Acute Assessment and Plan: Cr 1.50 this morning; improvement. Dehydration vs medication induced Continue with IV fluids Avoid nephrotoxic agents; renally dose medications Trend BMP (5) Hypothyroidism: Qualifiers: Hypothyroidism type: acquired Qualified Code(s): E03.9 - Hypothyroidism, unspecified Code(s): E03.9 - Hypothyroidism, unspecified Status: Chronic Assessment and Plan: TSH wnl Continue with levothyroxine (6) PAD (peripheral artery disease): Code(s): I73.9 - Peripheral vascular disease, unspecified Status: Chronic Assessment and Plan: Patient has a history of having his stent to 1 of his legs. Continue with Plavix continue with aspirin (7) CHF (congestive heart failure), NYHA class I: Qualifiers: Congestive heart failure type: diastolic Congestive heart failure chronicity: chronic Qualified Code(s): I50.32 - Chronic diastolic (congestive) heart failure Code(s): I50.9 - Heart failure, unspecified Status: Chronic Assessment and Plan: Appears to be compensated Holding Lasix, and losartan for now due to acute renal failure Monitor (8) Parkinson's disease: Code(s): G20 - Parkinson's disease Status: Chronic Assessment and Plan: No acute issues Continue home regimen (9) Restless leg syndrome: Code(s): G25.81 - Restless legs syndrom
[2020-01-11 10:18] LABS: Alveolar/Arterial O2 Gradient 68.8 mmHg; Base Excess ABG 3.2 mEq/l (+/-2.0); Fractional Inspired Oxygen 28 %; HCO3 ABG 30.5 mEq/l (22.0-26.0); Oxygen Content ABG 18.3 %vol (16.0-22.0); Oxygen Saturation ABG 90.2 % (95.0-100.0); Oxyhemoglobin 89.6 % THb (90.0-100.0); PCO2 ABG 57.9 mmHg (35.0-45.0); PO2 ABG 62.5 mmHg (80.0-100.0); PO2 FiO2 Ratio Arterial Blood 2.23 %; Total Hemoglobin 14.5 g/dL (12.0-18.0)
[2020-01-11 10:19] LABS: Device NASAL CANNULA; Modified Allen's Test Pass; Site Drawn LEFT RADIAL
[2020-01-11] MEDS: ACETAMINOPHEN 500 MG TABLET 1000 MG PO ×2 (10:35→21:21)
--- NOTE | 2020-01-11 10:40 | PC.NURSE ---
Patient states he is allergic to mucinex but does not know what reaction he has to the medication. Notified SHERICE Platt and he requested I discontinue the medication.
[2020-01-11 11:48] LABS: Glucose Point of Care 115 (65-105)
[2020-01-11] MEDS: ENOXAPARIN 40 MG/0.4 ML SYRINGE SUB-Q (12:04)
[2020-01-11 16:37] LABS: Glucose Point of Care 105 (65-105)
[2020-01-11 20:59] LABS: Glucose Point of Care 133 (65-105)
[2020-01-11 23:56] LABS: Glucose Point of Care 115 (65-105)
[2020-01-12] VITALS (12 sets, daily range): BP systolic 110–144; BP diastolic 59–68; PULSE 73–84; RESP 16–22; TEMP 36.1–36.7; O2SAT 92–98
--- NOTE | 2020-01-12 00:31 | PC.NURSE ---
Pt needed repositioned in bed. Called for assistance, Katelyn MOSLEY came in and assisted me. I explained to him what we were going to do. We trended bed and he grabbed the head of the bed and pulled himself up. He snapped and raised his right arm like he was going to hit me. I jumped back and he said, YEAH! . He started yelling and cursing. He became belligerent. He looked at me and said, Your yamileth I cant stand up because I would be in retirement! Katelyn MOSLEY witnessed situation. He continued to yell and curse so I just stepped out of the room.
[2020-01-12] MEDS: ACETAMINOPHEN 500 MG TABLET 1000 MG PO ×3 (04:04→21:29)
[2020-01-12 04:51] LABS: Basophils Percent Auto 0.6 % (0.2-1.2); Eosinophils Absolute Auto 0.2 K/mm3 (0-0.3); Eosinophils Percent Auto 3.3 % (0-4.4); Hematocrit 40.1 % (42.0-52.0); Hemoglobin 12.3 g/dL (14.0-18.0); Immature Granulocyte Absolute 0.09 K/mm3 (0.00-0.031); Immature Granulocyte Percent A 1.3 % (0-0.5); Lymphocytes Absolute Auto 1.12 K/mm3 (0.9-3.2); Lymphocytes Percent Auto 16.7 % (18.3-44.2); Mean Corpuscular HGB Conc 30.7 g/dl (32-36); Mean Corpuscular Hemoglobin 28.6 pg (26-34); Mean Corpuscular Volume 93.3 fl (80-100); Monocytes Absolute Auto 0.7 K/mm3 (0.1-0.6); Monocytes Percent Auto 9.8 % (2.6-8.5); Neutrophils Absolute Auto 4.6 K/mm3 (1.3-6.7); Neutrophils Percent Auto 68.3 % (45.5-73.1); Platelet Count Result 175 k/mm3 (150-375); Red Cell Distribution Width 14.9 % (11.5-14.5); White Blood Count 6.7 K/mm3 (4.5-10.0)
[2020-01-12 05:25] LABS: Alanine Aminotransferase 12 U/L (4-50); Albumin Level 3.6 g/dL (3.5-5.1); Alkaline Phosphatase 66 U/L (38-126); Aspartate Amino Transferase 25 U/L (17-59); Bilirubin,Total 0.3 mg/dL (0.2-1.3); Blood Urea Nitrogen 15 mg/dL (9-20); CRP 17.8 mg/dL (<1.0); Calcium 8.7 mg/dL (8.4-10.2); Carbon Dioxide 35 mmol/L (22-30); Chloride 98 mmol/L (98-107); Estimated CRCL calculation 88 ml/min; Estimated Glomerular Filt Rate > 60; Glucose 104 mg/dL (75-110); Lactate Dehydrogenase 328 U/L (313-618); Magnesium 2.4 mg/dL (1.6-2.3); Phosphorus 2.9 mg/dL (2.5-4.5); Potassium 4.6 mmol/L (3.4-5.0); Sodium 136 mmol/L (137-145)
[2020-01-12] MEDS: PREGABALIN 50 MG CAPSULE PO ×3 (05:25→21:25)
[2020-01-12] MEDS: LEVOTHYROXINE SODIUM 50 MCG TABLET PO (05:25)
--- NOTE | 2020-01-12 08:46 | P.PNIM_ITS ---
Progress Note: A&P Assessment and Plan (1) Cellulitis: Qualifiers: Laterality: left Site of cellulitis: extremity Site of cellulitis of extremity: lower extremity Qualified Code(s): L03.116 - Cellulitis of left lower limb Code(s): L03.90 - Cellulitis, unspecified Status: Acute Assessment and Plan: Cellulitis and wound to the left foot. Patient's wound cultures grew Pseudomonas aeruginosa last admission that is pansensitive. Current wound cu lture/gram stain shows no WBCs or organisms on gram stain; culture no growth to date. BC no growth to date x2. Foot xray shows no acute bone/joint abnormality * Continue with Vanco and Primaxin for now * Consult to Infectious Disease placed; appreciate recommendations. * Consult wound care, although not here on weekends * Monitor * Pain control with Tylenol; avoid narcotics if at all possible (2) Pneumonia: Code(s): J18.9 - Pneumonia, unspecified organism Status: Acute Assessment and Plan: CXR yesterday read as Worsened airspace opacities in right mid and lower lung zones suspicious for pneumonia. Labs not necessarily suggestive of COVID, however test was placed due to change in respiratory status last night. WBC, lymphs, LDH, LFTs and ferritin WNL; CRP elevated at 17.8. On Vanc and Primaxin for foot cellulitis currently * ID consulted and appreciate recommendations * Continue COPD medications for now; d/c neb treatments * Continue vanc and primaxin for now; further rec from ID much appreciated * IS, mucinex, supplemental O2 as needed; wean as tolerated * Monitor (3) Suspected COVID-19 virus infection: Code(s): R68.89 - Other general symptoms and signs Status: Acute Assessment and Plan: Patient's O2 needs increased overnight, thus COVID testing was placed by night service * Droplet precautions in place * COVID pending * CXR today for monitoring * SPiriva and albuterol inhalers; d/c neb treatments * IS, mucinex, wean O2 * Encourage patient to sit up in bed or in chair while awake * Monitor closely (4) Acute respiratory failure with hypoxia: Code(s): J96.01 - Acute respiratory failure with hypoxia Status: Acute Assessment and Plan: Likely due to depressed respiratory function due to narcotics vs possible pneumonia seen on CXR vs underlying COPD with exac (although no wheezing noted on exam) vs OHS, although acuity suggestive of likely pneumonia * Wean O2 as tolerated * Patient on vanc and primaxin for cellulitis; some coverage for possible pneumonia. Further input on ID appreciated on antibiotics * Monitor closely (5) ARF (acute renal failure): Qualifiers: Acute renal failure type: unspecified Qualified Code(s): N17.9 - Acute kidney failure, unspecified Code(s): N17.9 - Acute kidney failure, unspecified Status: Acute Assessment and Plan: Cr 1.20 this morning; improvement. Dehydration vs medication induced * IVF stopped * Avoid nephrotoxic agents; renally dose medications * Trend BMP (6) Hypothyroidism: Qualifiers: Hypothyroidism type: acquired Qualified Code(s): E03.9 - Hypothyroidism, unspecified Code(s): E03.9 - Hypothyroidism, unspecified Status: Chronic Assessment and Plan: TSH wnl * Continue with levothyroxine (7) PAD (peripheral artery disease): Code(s): I73.9
--- NOTE | 2020-01-12 08:46 | PM.IMPN ---
Progress Note: A&P Assessment and Plan (1) Cellulitis: Qualifiers: Laterality: left Site of cellulitis: extremity Site of cellulitis of extremity: lower extremity Qualified Code(s): L03.116 - Cellulitis of left lower limb Code(s): L03.90 - Cellulitis, unspecified Status: Acute Assessment and Plan: Cellulitis and wound to the left foot. Patient's wound cultures grew Pseudomonas aeruginosa last admission that is pansensitive. Current wound culture/gram stain shows no WBCs or organisms on gram stain; culture no growth to date. BC no growth to date x2. Foot xray shows no acute bone/joint abnormality Continue with Vanco and Primaxin for now Consult to Infectious Disease placed; appreciate recommendations. Consult wound care, although not here on weekends Monitor Pain control with Tylenol; avoid narcotics if at all possible (2) Pneumonia: Code(s): J18.9 - Pneumonia, unspecified organism Status: Acute Assessment and Plan: CXR yesterday read as Worsened airspace opacities in right mid and lower lung zones suspicious for pneumonia. Labs not necessarily suggestive of COVID, however test was placed due to change in respiratory status last night. WBC, lymphs, LDH, LFTs and ferritin WNL; CRP elevated at 17.8. On Vanc and Primaxin for foot cellulitis currently ID consulted and appreciate recommendations Continue COPD medications for now; d/c neb treatments Continue vanc and primaxin for now; further rec from ID much appreciated IS, mucinex, supplemental O2 as needed; wean as tolerated Monitor (3) Suspected COVID-19 virus infection: Code(s): R68.89 - Other general symptoms and signs Status: Acute Assessment and Plan: Patient's O2 needs increased overnight, thus COVID testing was placed by night service Droplet precautions in place COVID pending CXR today for monitoring SPiriva and albuterol inhalers; d/c neb treatments IS, mucinex, wean O2 Encourage patient to sit up in bed or in chair while awake Monitor closely (4) Acute respiratory failure with hypoxia: Code(s): J96.01 - Acute respiratory failure with hypoxia Status: Acute Assessment and Plan: Likely due to depressed respiratory function due to narcotics vs possible pneumonia seen on CXR vs underlying COPD with exac (although no wheezing noted on exam) vs OHS, although acuity suggestive of likely pneumonia Wean O2 as tolerated Patient on vanc and primaxin for cellulitis; some coverage for possible pneumonia. Further input on ID appreciated on antibiotics Monitor closely (5) ARF (acute renal failure): Qualifiers: Acute renal failure type: unspecified Qualified Code(s): N17.9 - Acute kidney failure, unspecified Code(s): N17.9 - Acute kidney failure, unspecified Status: Acute Assessment and Plan: Cr 1.20 this morning; improvement. Dehydration vs medication induced IVF stopped Avoid nephrotoxic agents; renally dose medications Trend BMP (6) Hypothyroidism: Qualifiers: Hypothyroidism type: acquired Qualified Code(s): E03.9 - Hypothyroidism, unspecified Code(s): E03.9 - Hypothyroidism, unspecified Status: Chronic Assessment and Plan: TSH wnl Continue with levothyroxine (7) PAD (peripheral artery disease): Code(s): I73.9 - Peripheral vascular disease, unspecified Status: Chronic Assessment and Plan: Patient has a history of having his stent to 1 of his legs. Continue with Plavix continue with aspirin (8) CHF (congestive heart failure), NYHA class I: Qualifiers: Congestive heart failure type: diastolic Congestive heart failu
[2020-01-12 08:57] LABS: Glucose Point of Care 96 (65-105)
[2020-01-12] MEDS: OMEGA 3 POLYUNSAT FATTY ACIDS 1 GM CAP 2 GM PO ×2 (08:59→18:09)
[2020-01-12] MEDS: gemfibroziL 600 MG TABLET PO ×2 (08:59→18:09)
[2020-01-12] MEDS: ASPIRIN 325 MG ENTERIC TABLET PO (08:59)
[2020-01-12] MEDS: busPIRone HCL 5 MG TABLET 15 MG PO ×2 (08:59→18:08)
[2020-01-12] MEDS: SERTRALINE HCL 25 MG TABLET PO (08:59)
[2020-01-12] MEDS: CLOPIDOGREL BISULFATE 75 MG TABLET PO (09:00)
[2020-01-12] MEDS: ISOSORBIDE MONONITRATE 60 MG TAB.ER.24H PO (09:00)
[2020-01-12] MEDS: ISOSORBIDE MONONITRATE 30 MG TAB.ER.24H PO (09:00)
[2020-01-12] MEDS: TAMSULOSIN HCL 0.4 MG CAPSULE PO (09:00)
[2020-01-12] MEDS: ENOXAPARIN 40 MG/0.4 ML SYRINGE SUB-Q (09:00)
[2020-01-12] MEDS: FENOFIBRATE NANOCRYSTALLIZED 145 MG TABLET PO (09:00)
[2020-01-12] MEDS: SILVERGEL (ELTA) 45 ML 1 APPLIC TOPICAL (10:50)
[2020-01-12 12:29] LABS: Glucose Point of Care 189 (65-105)
[2020-01-12 17:21] LABS: Glucose Point of Care 139 (65-105)
[2020-01-12 20:13] LABS: Pneumococcal Antigen Urine Not Detected (Not Detected)
[2020-01-13] VITALS (15 sets, daily range): BP systolic 121–164; BP diastolic 72–80; PULSE 74–92; RESP 18–20; TEMP 35.8–36.3; O2SAT 85–97
--- NOTE | 2020-01-13 01:30 | PC.NURSE ---
Pt missed urinal and urinated on bed and shorts. Bedding was changed but patient refused to have shorts taken off and refused hospital pants. Pt is alert and oriented. Pt inhaler is at bedside and he refused to have staff put up inhaler. Stated that it is his property. Attempted to instruct about shorts and inhaler but patient refused to have it removed and patient refused to take of shorts.
[2020-01-13 03:50] LABS: Glucose Point of Care 145 (65-105)
[2020-01-13] MEDS: ACETAMINOPHEN 500 MG TABLET 1000 MG PO (03:59)
[2020-01-13 05:56] LABS: Basophils Percent Auto 0.7 % (0.2-1.2); Eosinophils Absolute Auto 0.2 K/mm3 (0-0.3); Hematocrit 41.8 % (42.0-52.0); Hemoglobin 12.8 g/dL (14.0-18.0); Immature Granulocyte Absolute 0.06 K/mm3 (0.00-0.031); Lymphocytes Absolute Auto 1.14 K/mm3 (0.9-3.2); Lymphocytes Percent Auto 19.1 % (18.3-44.2); Mean Corpuscular HGB Conc 30.6 g/dl (32-36); Mean Corpuscular Hemoglobin 28.5 pg (26-34); Mean Corpuscular Volume 93.1 fl (80-100); Mean Platelet Volume 10.5 fl (7.4-10.4); Monocytes Absolute Auto 0.5 K/mm3 (0.1-0.6); Monocytes Percent Auto 8.4 % (2.6-8.5); Neutrophils Percent Auto 66.8 % (45.5-73.1); Platelet Count Result 196 k/mm3 (150-375); Red Blood Count 4.49 M/mm3 (4.6-6.20); Red Cell Distribution Width 14.6 % (11.5-14.5)
[2020-01-13 06:01] LABS: Alanine Aminotransferase 11 U/L (4-50); Albumin Level 3.8 g/dL (3.5-5.1); Alkaline Phosphatase 64 U/L (38-126); Aspartate Amino Transferase 22 U/L (17-59); Bilirubin,Total 0.4 mg/dL (0.2-1.3); Blood Urea Nitrogen 12 mg/dL (9-20); CRP 7.5 mg/dL (<1.0); Calcium 9.1 mg/dL (8.4-10.2); Carbon Dioxide 34 mmol/L (22-30); Chloride 101 mmol/L (98-107); Estimated CRCL calculation 96 ml/min; Estimated Glomerular Filt Rate > 60; Glucose 120 mg/dL (75-110); Lactate Dehydrogenase 353 U/L (313-618); Magnesium 2.3 mg/dL (1.6-2.3); Phosphorus 2.9 mg/dL (2.5-4.5); Potassium 4.5 mmol/L (3.4-5.0); Sodium 138 mmol/L (137-145)
[2020-01-13] MEDS: PREGABALIN 50 MG CAPSULE PO ×2 (06:36→20:46)
[2020-01-13] MEDS: LEVOTHYROXINE SODIUM 50 MCG TABLET PO (06:36)
[2020-01-13 07:43] LABS: Glucose Point of Care 122 (65-105)
[2020-01-13] MEDS: ASPIRIN 325 MG ENTERIC TABLET PO (07:53)
[2020-01-13] MEDS: busPIRone HCL 5 MG TABLET 15 MG PO ×2 (07:53→16:44)
[2020-01-13] MEDS: CLOPIDOGREL BISULFATE 75 MG TABLET PO (07:54)
[2020-01-13] MEDS: ISOSORBIDE MONONITRATE 60 MG TAB.ER.24H PO (07:54)
[2020-01-13] MEDS: ISOSORBIDE MONONITRATE 30 MG TAB.ER.24H PO (07:54)
[2020-01-13] MEDS: SILVERGEL (ELTA) 45 ML 1 APPLIC TOPICAL (07:54)
[2020-01-13] MEDS: FENOFIBRATE NANOCRYSTALLIZED 145 MG TABLET PO (07:54)
[2020-01-13] MEDS: ENOXAPARIN 40 MG/0.4 ML SYRINGE SUB-Q (07:54)
[2020-01-13] MEDS: gemfibroziL 600 MG TABLET PO ×2 (07:54→16:44)
[2020-01-13] MEDS: TAMSULOSIN HCL 0.4 MG CAPSULE PO (07:54)
[2020-01-13] MEDS: SERTRALINE HCL 25 MG TABLET PO (07:55)
[2020-01-13] MEDS: OMEGA 3 POLYUNSAT FATTY ACIDS 1 GM CAP 2 GM PO ×2 (07:55→16:44)
[2020-01-13] MEDS: DOCUSATE SODIUM 100 MG CAPSULE PO ×2 (08:32→20:46)
--- NOTE | 2020-01-13 11:23 | WPDINFPN2 ---
Progress Note: A&P Assessment and Plan (1) Cellulitis: Qualifiers: Laterality: left Site of cellulitis: extremity Site of cellulitis of extremity: lower extremity Qualified Code(s): L03.116 - Cellulitis of left lower limb Code(s): L03.90 - Cellulitis, unspecified Status: Acute Assessment and Plan: 1. Recent R foot cellulitis, resolved 2. Chronic venous stasis and stasis dermatitis 3. COPD and chronic respiratory failure 4. Amoxicillin allergy REC Stop antibiotics. Elevation discussed. He is on diuretics. Low suspicion for CoVid 19, but test is in process, and I think it is wisest to wait for result before discharge. Subjective Date/time seen: 01/13/20 11:23 Objective Data Vital Signs Vital Signs: Vital Signs - 24 hr 01/12/20 12:00 01/12/20 14:45 01/12/20 16:00 Temperature 36.7 C Pulse Rate 78 79 74 Respiratory Rate 16 Blood Pressure 110/59 L Pulse Oximetry 98 01/12/20 17:10 01/12/20 20:00 01/12/20 21:00 Temperature 36.2 C L Pulse Rate 73 76 Respiratory Rate 16 Blood Pressure 121/59 L 142/63 H Pulse Oximetry 93 01/12/20 21:30 01/13/20 00:00 01/13/20 01:15 Temperature 36.3 C L 36.2 C L Pulse Rate 84 74 84 Respiratory Rate 22 H 20 Blood Pressure 164/73 H Pulse Oximetry 92 97 01/13/20 04:00 01/13/20 04:17 01/13/20 08:00 Temperature 35.8 C L Pulse Rate 78 84 74 Respiratory Rate 20 Blood Pressure 121/77 Pulse Oximetry 96 01/13/20 09:02 01/13/20 10:27 Temperature 36.0 C L Pulse Rate 82 Respiratory Rate 20 Blood Pressure 133/72 Pulse Oximetry 94 93 Intake/Output Intake/Output: Intake & Output 01/10/20 01/11/20 01/12/20 01/13/20 23:59 23:59 23:59 23:59 Intake Total 350 2820 2320 470 Output Total 1900 2450 850 Balance 350 920 -130 -380 Meds/Results Medications: Active Medications Generic Name Dose Route Start Last Admin Trade Name Freq PRN Reason Stop Dose Admin Acetaminophen 500 mg 01/11/20 07:15 Tylenol Tablet PO Q6H PRN PAIN 4-6 OR FEVER Acetaminophen 325 mg 01/11/20 06:52 Tylenol Tablet PO Q6H PRN Mild Pain (1-3) Acetaminophen 1,000 mg 01/11/20 06:52 01/13/20 03:59 Tylenol Tablet PO 1,000 mg Q6H PRN Administration Pain Rated 7-10 Albuterol 2 puff 01/12/20 07:07 Proventil Hfa INHALATION QIDRT PRN Shortness Of Breath, wheezing Aspirin 325 mg 01/11/20 09:00 01/13/20 07:53 Aspirin Ec PO 325 mg DAILY JAYSON Administration Buspirone HCl 15 mg 01/11/20 00:50 01/13/20 07:53 Buspar PO 15 mg BID JAYSON Administration Clopidogrel Bisulfate 75 mg 01/11/20 09:00 01/13/20 07:54 Plavix PO 75 mg DAILY JAYSON Administration Dextrose 12.5 gm 01/11/20 00:50 Dextrose 50% Syringe IV PUSH PRN PRN Hypoglycemia Protocol Docusate Sodium 100 mg 01/13/20 09:00 01/13/20 08:32 Colace Capsule PO 100 mg Q12HR JAYSON Administration Enoxaparin Sodium 40 mg 01/11/20 11:05 01/13/20 07:54 Lovenox SUB-Q 40 mg DAILY JAYSON Administration Ergocalciferol 50,000 unit 01/15/20 09:00 Drisdol PO We@0900 JAYSNO Fenofibrate 145 mg 01/11/20 09:00 01/13/20 07:54 Tricor PO 145 mg DAILY JAYSON Administration Fish Oil 2 gm 01/11/20 09:00 01/13/20 07:55 Lovaza PO 2 gm BID JAYSON Administration Gemfibrozil 600 mg 01/11/20 09:00 01/13/20 07:54 Lopid PO 600 mg BID JAYSON Administration Glucagon 1 mg 01/11/20 00:50 Glucagon For Inj IM PRN PRN Hypoglycemia Protocol Glucose 15 gm 01/11/20 00:50 Glutose 15 PO PRN PRN Hypoglycemia Protocol Hydralazine HCl 10 mg 01/11/20 08:01 Apresoline Hcl Inj IV PUSH Q8H PRN Blood Pressure - High Dextrose 1,000 mls @ 100 mls/hr 01/11/20 00:50 Dextrose 5% 1,000 Ml IVPB PRN PRN Hypoglycemia Protocol Insulin Aspart 2 - 5 units 01/11/20 08:00 01/13/20 11:23 Novolog
[2020-01-13 11:38] LABS: Glucose Point of Care 101 (65-105)
[2020-01-13 12:24] LABS: Pan-SARS RNA: NEGATIVE (NEGATIVE); SARS-CoV-2 RNA: NEGATIVE (NEGATIVE)
--- NOTE | 2020-01-13 13:30 | PC.NURSE ---
Patient has been very inappropriate with staff. While checking patients blood sugar, I was reaching for my badge in order to scan the barcode, and patient stated Are you taking your shirt off for me? I would really like that. Also has made inappropriate comments to MELANY Diamond. Patient alert and oriented and was instructed that these are inappropriate manners that needed to stop. Therapy at bedside to evaluate patient for PT/OT and he became very agitated and cussing at staff. At bedside during this time and they had asked patient where he lives, steps at home, etc. Patient became very angry and started cussing and told staff to get out of his room. SHERICE Jaime notified.
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
--- NOTE | 2020-01-13 13:53 | PCPTNOTE ---
Attempted to see patient. Unable to see patient secondary to verbal agitation and aggression. Pt became verbally agitated during subjective exam. When asked about pain, patient states he had low back pain. Therapist asks if patient would like to sit in a chair and patient became agitated, raising his voice and demanding therapy should leave. Pt not appropriate for therapy secondary to non-compliance, aggression, and verbal agitation. Discharged this date.
--- NOTE | 2020-01-13 13:55 | PCOTNOTE ---
Attempted OT evalaution on this date. Pt is non compliant with therapy and reports does not want to participate at this time. Pt continued with verbal agitation and is not appropriate for therapy at this time. D/C from skilled OT at this time.
--- NOTE | 2020-01-13 14:50 | HOMEO2EVAL ---
Home Oxygen Evaluation RC: Home Oxygen (O2) Evaluation Start: 01/13/20 12:31 Freq: ONCE Status: Active Protocol: RPE Activity Type Activity Date Activity User E-Sign Co-Sign Detail Recorded Client Recorded Date Recorded By Document 01/13/20 13:40 [email or web address] [email or web address] 01/13/20 14:50 KRM Document 01/13/20 13:50 [email or web address] [email or web address] 01/13/20 14:50 KRM Document 01/13/20 13:52 [email or web address] [email or web address] 01/13/20 14:50 KRM Document 01/13/20 13:56 [email or web address] [email or web address] 01/13/20 14:50 KRM Document 01/13/20 14:02 [email or web address] [email or web address] 01/13/20 14:50 KRM 01/13/20 01/13/20 01/13/20 13:40 13:50 13:52 Home O2 Evaluation Test Phase Resting Exercise Exercise Oxygen Delivery Room Air Room Air Nasal Cannula Oxygen Flow Rate (L/min) 1 Pulse Oximetry (90-100 %) 95 85 L 88 L Pulse Rate (60-100 beats/min) 83 91 90 Activity Tolerance Home Oxygen Evaluation Comments Treatment Charges O2 Evaluation 01/13/20 01/13/20 13:56 14:02 Home O2 Evaluation Test Phase Exercise Resting Oxygen Delivery Nasal Cannula Room Air Oxygen Flow Rate (L/min) 2 Pulse Oximetry (90-100 %) 95 95 Pulse Rate (60-100 beats/min) 92 90 Activity Tolerance Poor Home Oxygen Evaluation Comments Requires 2lpm with activity. Treatment Charges
--- NOTE | 2020-01-13 16:14 | PM.DS ---
DS: Diagnosis Admitting Diagnosis Admitting Diagnosis: Cellulitis of left lower limb Discharge Diagnosis (1) Cellulitis: Qualifiers: Laterality: left Site of cellulitis: extremity Site of cellulitis of extremity: lower extremity Qualified Code(s): L03.116 - Cellulitis of left lower limb Code(s): L03.90 - Cellulitis, unspecified Status: Acute Assessment and Plan: History of cellulitis and wound to the left foot. Patient's wound cultures grew Pseudomonas aeruginosa last admission that is pansensitive. Current wound culture/gram stain shows no WBCs or organisms on gram stain; culture shows no growth to date. BC no growth to date x2. Foot xray shows no acute bone/joint abnormality. ID has seen patient and recommends d/c antibiotics as foot does not appear actively infected; okay for discharge now that COVID results have returned and are negative. Wound Care has also has seen patient and recommends silver gel only if wound opens up (PRN), although now appears dry. Continue Wound Care HH and add HH PT/OT no antibiotics F/u with PCP Consult to Infectious Disease placed; appreciate recommendations. Pain control with Tylenol; avoid narcotics if at all possible (2) Pneumonia: Code(s): J18.9 - Pneumonia, unspecified organism Status: Ruled-out Assessment and Plan: Ruled out. Suggestive on initial CXR, however, CXR yesterday read as no acute cardiopulmonary disease. COVID negative. Atelectasis on previous CXR? ID consulted and appreciate recommendations Continue COPD medications Home O2 eval today and recommends 2L O2 with activity at home f/u with PCP (3) Suspected COVID-19 virus infection: Code(s): R68.89 - Other general symptoms and signs Status: Ruled-out Assessment and Plan: Ruled out. Test Negative today. CXR unremarkable yesterday (4) Acute respiratory failure with hypoxia: Code(s): J96.01 - Acute respiratory failure with hypoxia Status: Acute Assessment and Plan: Likely due to depressed respiratory function due to narcotics vs underlying COPD with exac (although no wheezing noted on exam) vs OHS. This may very well be signs of worsened COPD and CRF. Home O2 eval recommends 2L with activity PNA unlikely. COVID ruled out (5) ARF (acute renal failure): Qualifiers: Acute renal failure type: unspecified Qualified Code(s): N17.9 - Acute kidney failure, unspecified Code(s): N17.9 - Acute kidney failure, unspecified Status: Acute Assessment and Plan: Cr 1.10 this morning; improvement. Dehydration vs medication induced IVF stopped (6) Hypothyroidism: Qualifiers: Hypothyroidism type: acquired Qualified Code(s): E03.9 - Hypothyroidism, unspecified Code(s): E03.9 - Hypothyroidism, unspecified Status: Chronic Assessment and Plan: TSH wnl Continue with levothyroxine (7) PAD (peripheral artery disease): Code(s): I73.9 - Peripheral vascular disease, unspecified Status: Chronic Assessment and Plan: Patient has a history of having his stent to 1 of his legs. Continue with Plavix continue with aspirin (8) CHF (congestive heart failure), NYHA class I: Qualifiers: Congestive heart failure chronicity: chronic Congestive heart failure type: diastolic Qualified Code(s): I50.32 - Chronic diastolic (congestive) heart failure Code(s): I50.9 - Heart failure, unspecified Status: Chronic Assessment and Plan: Appears to be compensated Resume home medications at discharge Monitor (9) Parkinson's disease: Code(s): G20 - Parkinson's dis
--- NOTE | 2020-01-13 16:31 | PCRCNOTE ---
2lpm o2 with activity required, set pt. up with [facility].
[2020-01-13 16:50] LABS: Glucose Point of Care 91 (65-105)
--- NOTE | 2020-01-13 18:18 | PC.NURSE ---
Patient stating he is not ready for discharge and feels as though the only reason we are discharging him is because he had cussed at staff this afternoon. Spoke with patient in detail in regards to his discharge and improvement in infection. However, patient is very reluctant to listen to any teaching done by staff. He is very agitated any time I attempt to educate him. Informed patient he does have the right to appeal his discharge. Spoke with him also in detail about this. However, at this time he wants to just sign the paperwork and get out of here. Attempted to go through discharge instructions with him and he refuses to let me do so. I was only able to read the first few lines of discharge to the patient when he cut me off and told me to just show him where to sign. Patient very irritated and agitated at anything I attempt to do for him. While removing his IV access, he yelled at me aren't you going to wait until I am finished signing this paper before you rip that out of my arm. However, all I was doing was getting supplies (gauze, tape) ready to take access out once he had completed his signature.
[2020-01-13 18:37] LABS: Legionella pneumophila Ag Ur Not Detected (Not Detected)
== END 2020-01-13 22:30 | disposition home health service (06) | DRG 637 ==
LOC: ANHED 19:25 → ANH2MED 19:26
PROVIDERS: Nurse Practitioner; Physician Assistant; Admitting Provider Family Medicine; Emergency Provider General Practice; Visit Provider Internal Medicine
DX: E11.628 Type 2 diabetes mellitus with other skin complications (principal); J96.01 Acute respiratory failure with hypoxia; L03.116 Cellulitis of left lower limb; I50.32 Chronic diastolic (congestive) heart failure; Z68.41 Body mass index [BMI] 40.0-44.9, adult; N17.9 Acute kidney failure, unspecified; E66.01 Morbid (severe) obesity due to excess calories; I11.0 Hypertensive heart disease with heart failure; J44.9 Chronic obstructive pulmonary disease, unspecified; E03.9 Hypothyroidism, unspecified; E11.42 Type 2 diabetes mellitus with diabetic polyneuropathy; E11.51 Type 2 diabetes mellitus with diabetic peripheral angiopathy without gangrene; I73.9 Peripheral vascular disease, unspecified; Z20.828 Contact with and (suspected) exposure to other viral communicable diseases; E86.0 Dehydration; G20 Parkinson's disease; G25.81 Restless legs syndrome; N40.0 Benign prostatic hyperplasia without lower urinary tract symptoms; E78.5 Hyperlipidemia, unspecified; E11.621 Type 2 diabetes mellitus with foot ulcer; L97.509 Non-pressure chronic ulcer of other part of unspecified foot with unspecified severity; F43.10 Post-traumatic stress disorder, unspecified; M19.90 Unspecified osteoarthritis, unspecified site; Z95.820 Peripheral vascular angioplasty status with implants and grafts; Z87.891 Personal history of nicotine dependence
CPT/HCPCS: 36415; 36600; 71045; 73630; 80053; 80202; 81001; 82375; 82728; 82805; 83050; 83605; 83615; 83735; 84100; 84443; 85025; 85652; 86140; 87040; 87070; 87205; 87449; 87635; 87804; 87899; 94618; 94640; 96365; 96375; 97161; 99285; A9270; J0743; J1170; J1650; J2270; J2310; J2405; J3370; J7030; U0002

== ENCOUNTER 2020-04-16 19:06 | Emergency (ER) | payer MEDICARE, MEDICAID, SELFPAY ==
--- NOTE | ~2020-04-16 | XR_ITS ---
EXAMINATION: XR chest 2V DATE: 04/16/2020 20:30 INDICATION: Shortness of breath. TECHNIQUE: Frontal and lateral views of the chest were obtained. COMPARISON: Chest single view 01/12/2020 FINDINGS: The chest demonstrates clear lungs without pneumonia, pleural effusion, or pneumothorax. Th e heart size is normal. IMPRESSION: 1. No acute cardiopulmonary disease. Reviewed, dictated and finalized at location A.
[2020-04-16 19:32] VITALS: BP 133/70; PULSE 73; RESP 22; TEMP 35.9; O2SAT 97
--- NOTE | 2020-04-16 19:43 | ECG_ITS ---
Measurements Intervals [place] Rate: 74 P: 64 NV: 178 QRS: 83 QRSD: 111 T: 44 QT: 414 QTc: 460 Interpretive Statements SINUS RHYTHM VENTRICULAR PREMATURE COMPLEX INCOMPLETE RIGHT BUNDLE BRANCH BLOCK BORDERLINE ST ABNORMALITY- INFERIOR LEADS BORDERLINE ECG Electronically Signed On 04-16-2020 20:08:24 CDT by Alonzo Asencio D.O.
[2020-04-16 20:02] LABS: Basophils Percent Auto 0.5 % (0.2-1.2); Eosinophils Absolute Auto 0.1 K/mm3 (0-0.3); Eosinophils Percent Auto 1.5 % (0-4.4); Hematocrit 45.5 % (42.0-52.0); Hemoglobin 14.4 g/dL (14.0-18.0); Immature Granulocyte Absolute 0.03 K/mm3 (0.00-0.031); Immature Granulocyte Percent A 0.5 % (0-0.5); Lymphocytes Absolute Auto 1.36 K/mm3 (0.9-3.2); Lymphocytes Percent Auto 22.4 % (18.3-44.2); Mean Corpuscular HGB Conc 31.6 g/dl (32-36); Mean Corpuscular Hemoglobin 28.6 pg (26-34); Mean Corpuscular Volume 90.3 fl (80-100); Mean Platelet Volume 9.5 fl (7.4-10.4); Monocytes Absolute Auto 0.7 K/mm3 (0.1-0.6); Neutrophils Absolute Auto 3.9 K/mm3 (1.3-6.7); Neutrophils Percent Auto 64.1 % (45.5-73.1); Platelet Count Result 220 k/mm3 (150-375); Red Blood Count 5.04 M/mm3 (4.6-6.20); White Blood Count 6.1 K/mm3 (4.5-10.0)
[2020-04-16 20:12] LABS: INR 1.1; Prothrombin Time 13.4 Seconds (11.1-14.7)
[2020-04-16 20:13] LABS: Blood Urea Nitrogen 22 mg/dL (9-20); Calcium 9.5 mg/dL (8.4-10.2); Carbon Dioxide 31 mmol/L (22-30); Chloride 96 mmol/L (98-107); Estimated CRCL calculation 74 ml/min; Estimated Glomerular Filt Rate 47; Glucose 110 mg/dL (75-110); Partial Thromboplastin Time 35.8 SECONDS (22.3-36.8); Potassium 3.8 mmol/L (3.4-5.0); Sodium 152 mmol/L (137-145)
[2020-04-16 20:26] LABS: NT Pro B Type Natriuretic Pept 280 PG/ML (5-100); Troponin I < 0.012 ng/mL (0.000-0.034)
[2020-04-16 20:54] VITALS: BP 133/71; PULSE 77; RESP 22; O2SAT 97
--- NOTE | 2020-04-16 21:13 | ED.GENADULT ---
HPI - General Adult General Chief complaint: Shortness of Breath/Dyspnea Stated complaint: sissy foot cellulitis Time Seen by Provider: 04/16/20 20:55 History of Present Illness HPI narrative: Patient is a 64-year-old male who presents to the ER with concerns for infection to his left foot. Noticed today that the lateral aspect of his foot was draining some purulent material. No fevers or chills or sweats. No worsening swelling in his lower extremities. At baseline patient uses a motorized wheelchair to get around the house and then can transfer to his chairs and restroom. No chest pain/shortness of breath/cough/sore throat. Related Data Home Medications Medication Instructions Recorded Confirmed Trelegy Ellipta 1 inh INHALATION DAILY 12/31/19 04/16/20 Vascepa 2 g PO BID 12/31/19 04/16/20 albuterol sulfate [Ventolin HFA] 2 puff INHALATION Q4H PRN 12/31/19 04/16/20 aspirin 325 mg PO DAILY 12/31/19 04/16/20 buspirone 15 mg PO BID 12/31/19 04/16/20 clopidogrel 75 mg PO DAILY 12/31/19 04/16/20 ergocalciferol (vitamin D2) 1,250 mcg PO WEEKLY 12/31/19 04/16/20 [Vitamin D2] fenofibrate nanocrystallized 145 mg PO DAILY 12/31/19 04/16/20 furosemide 40 mg PO BID 12/31/19 04/16/20 gemfibrozil 600 mg PO BID 12/31/19 04/16/20 glimepiride 1 mg PO DAILY 12/31/19 04/16/20 ipratropium-albuterol 3 ml INHALATION Q4H PRN 12/31/19 04/16/20 isosorbide mononitrate 30 mg PO DAILY 12/31/19 04/16/20 isosorbide mononitrate 60 mg PO DAILY 12/31/19 04/16/20 levothyroxine 50 mcg PO DAILY 12/31/19 04/16/20 losartan 25 mg PO DAILY 12/31/19 04/16/20 nitroglycerin 0.3 mg SUBLINGUAL Q5M PRN 12/31/19 04/16/20 pregabalin 50 mg PO Q8H 12/31/19 04/16/20 sertraline 25 mg PO DAILY 12/31/19 04/16/20 spironolactone 25 mg PO DAILY 12/31/19 04/16/20 tamsulosin 0.4 mg PO DAILY 12/31/19 04/16/20 hydrocodone-acetaminophen [[place]] 1 tablet PO Q4H PRN 01/10/20 04/16/20 Allergies Allergy/AdvReac Type Severity Reaction Status Date / Time amoxicillin Allergy Unknown Rash Verified 04/16/20 19:31 Review of Systems Review of Systems: All systems reviewed & are unremarkable except as noted in HPI and below Constitutional: Constitutional: Denies chills, Denies fever(s) and Denies weakness ENT: Denies nasal congestion and Denies sore throat Cardiovascular: Cardiovascular: Denies chest pain and Denies radiating jaw, neck or arm pain Comments: Chronic lower extremity zakiya Respiratory: Respiratory: Denies cough and Denies dyspnea Gastrointestinal: Gastrointestinal: Denies abdominal pain, Denies nausea and Denies vomiting Musculoskeletal: Musculoskeletal: Denies arthralgias and Denies joint swelling Integumentary/Breasts: Skin/Breast: Denies pruritus, Denies erythema and Reports rash [facility] Surgical History Surgical History (Updated 01/01/20 @ 00:36 by Sarah Ellis NP) History of angioplasty Left leg History of cardiac catheterization S/P peripheral artery angioplasty with stent placement Social History Social History (Updated 01/11/20 @ 00:29 by Sarah Ellis NP) Social History: The patient is . He had 3 children 1 has . Patient is a full code. He does not have a power order builder loader. 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 Smoking status: Former smoker Smoking end date: 10/02/16 Alcohol intake: former Substance use: former Substance use type: does not use Gender identity (if verbalized by the patient): Male Spiritual care concerns: No Agree to blood products: Yes Exam Narrative: Exam Narrative: GENERAL: Chronically ill-appearing and morbidly obese, and in no acute distress. HEAD: Normocephalic, atraumatic. ENT: Mucous membranes moist. CHEST: Clear to auscultation. No respiratory distress. HEART: Regular rate and rhythm. Normal peripheral pulses. ABDOMEN: Soft, nontender, nondistended. EXTREMITIES: Normal range of motion. 2+ edema. SK
[2020-04-16] MEDS: SODIUM CHLORIDE 0.9% IV 1,000 ML 999 ML IV CONT (21:15)
[2020-04-16] MEDS: oxyCODONE/ACETAMINOPHEN 5-325 MG TABLET 2 TABLET PO (22:05)
[2020-04-16 22:28] VITALS: BP 145/78; PULSE 74; RESP 22; O2SAT 95
--- NOTE | 2020-04-16 23:43 | PC.NURSE ---
called [facility] to transport patient to home. ETA [phone]
--- NOTE | 2020-04-17 00:25 | PC.NURSE ---
pt explained that we would call ems for transport back to his home, eta [phone]
[2020-04-17 00:37] VITALS: BP 156/74; PULSE 74; RESP 20; O2SAT 74
[2020-04-17 02:20] VITALS: BP 158/87; PULSE 74; RESP 20; O2SAT 96
--- NOTE | 2020-04-17 02:35 | PC.NURSE ---
pt mad we had to turn the light on. pt yelled HEY . pt wants to be moved to a different room, explained we would not be able to do that at this time. gave pt an updated eta
--- NOTE | 2020-04-17 03:28 | PC.NURSE ---
Called [facility] at [phone] to request transport. [facility] declined Called [facility] at [phone] to request transport. [facility] declined.
--- NOTE | 2020-04-17 03:31 | PC.NURSE ---
[facility] and [facility] have a exstensive.
--- NOTE | 2020-04-17 03:53 | PC.NURSE ---
Called [facility] to request transport. [facility] Declined.
--- NOTE | 2020-04-17 04:12 | PC.NURSE ---
[facility] called they advised a [id number] eta.
[2020-04-17 04:33] VITALS: BP 162/84; PULSE 77; RESP 20; O2SAT 96
--- NOTE | 2020-04-17 04:33 | PC.NURSE ---
pt unahappy and cursing at staff that he wants to go home. pt explained that there was an emergency and they have changed time. pt is very unhappy.
--- NOTE | 2020-04-17 05:30 | PC.NURSE ---
[facility] called and updated ETA to [phone]
--- NOTE | 2020-04-17 06:20 | PC.NURSE ---
explained to pt we would have to wait for ems which has a eta of [phone]. offered patient breakfast
--- NOTE | 2020-04-17 06:35 | PC.NURSE ---
pt cursing at staff because we would not treat animals like this . explained to the patient that we have no control over when ems comes to pick him up. explained again that we have called multiple places for transport, but they are busy with emergency calls. pt states call my daughter and I will crawl in the back of her truck.
[2020-04-17 08:30] VITALS: BP 152/86; PULSE 72; RESP 20; O2SAT 96
== END 2020-04-17 09:05 | disposition home or self-care (01) ==
PROVIDERS: Emergency Provider Emergency Medicine
DX: L97.529 Non-pressure chronic ulcer of other part of left foot with unspecified severity (principal); Z95.5 Presence of coronary angioplasty implant and graft; Z87.891 Personal history of nicotine dependence; Z79.82 Long term (current) use of aspirin; Z79.84 Long term (current) use of oral hypoglycemic drugs; F41.9 Anxiety disorder, unspecified; F32.9 Major depressive disorder, single episode, unspecified; F43.10 Post-traumatic stress disorder, unspecified; E03.9 Hypothyroidism, unspecified; I50.9 Heart failure, unspecified; J44.9 Chronic obstructive pulmonary disease, unspecified; J61 Pneumoconiosis due to asbestos and other mineral fibers; N40.0 Benign prostatic hyperplasia without lower urinary tract symptoms; N28.9 Disorder of kidney and ureter, unspecified; I49.3 Ventricular premature depolarization; I45.10 Unspecified right bundle-branch block; R94.31 Abnormal electrocardiogram [ECG] [EKG]
CPT/HCPCS: 36415; 71046; 80048; 83880; 84484; 85025; 85610; 85730; 93005; 96361; 96365; 99284; A9270; J0696; J7030

== ENCOUNTER 2021-03-06 19:13 | Emergency (ER) | payer MEDICARE, MEDICAID, SELFPAY ==
[2021-03-06 19:11] VITALS: BP 113/73; PULSE 92; RESP 14; TEMP 36.8; O2SAT 95
--- NOTE | 2021-03-06 20:07 | ED.GENADULT ---
HPI - General Adult General Chief complaint: Unspecified Stated complaint: doesn't want to live in prison Time Seen by Provider: 03/06/21 19:29 Source: patient, EMS and RN notes reviewed Mode of arrival: EMS Limitations: no limitations History of Present Illness HPI narrative: Patient 65 years old white male brought to the emergency room by ambulance from prison after signing AMA. Infection Patient had history of progressive weakness of the lower extremities, used to be wheelchair-bound, subsequently became bedbound, can to get up and take care of himself. His daughter and another caregiver is to take care of him for the last 1-1/2-year. Patient decided to go to prison for better care. Yesterday patient called the ambulance, took him to a prison, today patient had argument with the staff because his sandwich had maggots and was treated badly. Patient decided to go back home and signed AMA. EMT brought him to our emergency room. Currently patient is asymptomatic denying any suicidal or homicidal ideation, telling me that he will not stay in the prison because of the poor quality and maggots containing food. Patient's daughter who have the power of tax associate attorney arrived to the emergency room and agreed to take patient back home and take care of him as usual. Also she is calling the caregiver to come to assist her at home. Patient declined any further evaluation including blood tests or imaging. Patient's daughter at the bedside. Patient denies any fever, chills, nausea, vomiting, chest pain, shortness of breath or abdominal pain Related Data Home Medications Medication Instructions Recorded Confirmed Trelegy Ellipta 1 inh INHALATION DAILY 12/31/19 04/16/20 Vascepa 2 g PO BID 12/31/19 04/16/20 albuterol sulfate [Ventolin HFA] 2 puff INHALATION Q4H PRN 12/31/19 04/16/20 aspirin 325 mg PO DAILY 12/31/19 04/16/20 buspirone 15 mg PO BID 12/31/19 04/16/20 clopidogrel 75 mg PO DAILY 12/31/19 04/16/20 ergocalciferol (vitamin D2) 1,250 mcg PO WEEKLY 12/31/19 04/16/20 [Vitamin D2] fenofibrate nanocrystallized 145 mg PO DAILY 12/31/19 04/16/20 furosemide 40 mg PO BID 12/31/19 04/16/20 gemfibrozil 600 mg PO BID 12/31/19 04/16/20 glimepiride 1 mg PO DAILY 12/31/19 04/16/20 ipratropium-albuterol 3 ml INHALATION Q4H PRN 12/31/19 04/16/20 isosorbide mononitrate 30 mg PO DAILY 12/31/19 04/16/20 isosorbide mononitrate 60 mg PO DAILY 12/31/19 04/16/20 levothyroxine 50 mcg PO DAILY 12/31/19 04/16/20 losartan 25 mg PO DAILY 12/31/19 04/16/20 nitroglycerin 0.3 mg SUBLINGUAL Q5M PRN 12/31/19 04/16/20 pregabalin 50 mg PO Q8H 12/31/19 04/16/20 sertraline 25 mg PO DAILY 12/31/19 04/16/20 spironolactone 25 mg PO DAILY 12/31/19 04/16/20 tamsulosin 0.4 mg PO DAILY 12/31/19 04/16/20 hydrocodone-acetaminophen [Jean] 1 tablet PO Q4H PRN 01/10/20 04/16/20 Allergies Allergy/AdvReac Type Severity Reaction Status Date / Time amoxicillin Allergy Unknown Rash Verified 03/06/21 19:20 Review of Systems Review of Systems: Narrative: CONSTITUTIONAL: Denies fever, chills, or sweats. EYES: Denies visual changes, redness, or discharge. ENT: Denies rhinorrhea, congestion, sore throat, or otalgia. CARDIOVASCULAR: Denies chest pain, palpitations, or edema. RESPIRATORY: Denies cough or dyspnea. GASTROINTESTINAL: Denies abdominal pain, nausea, vomiting, or diarrhea. GENITOURINARY: Denies dysuria or hematuria. SKIN: Denies rash or itching. MUSCULOSKELETAL: Bedbound NEUROLOGIC: Denies headache, numbness, or weakness. PSYCHIATRIC: Anxiety and depression PMFSH Past Medical History Medical History Arthritis BPH (benign prostatic hyperplasia) CHF (congestive heart failure), NYHA class I Chronic back pain COPD (chronic obstructive pulmonary disease) DM2 (diabetes mellitus, type 2) Hepatitis Patient stated he was treated HTN (hypertension) Hyperlipidemia Hypothyroidism Neuropathy PAD (peripheral a
[2021-03-06 20:10] VITALS: BP 145/77; PULSE 74; RESP 19; O2SAT 97
--- NOTE | 2021-03-06 20:29 | PC.NURSE ---
called [facility] to request transport. declined called [facility] to request transport. ETA 30 minutes.
== END 2021-03-06 21:12 | disposition home or self-care (01) ==
PROVIDERS: Emergency Provider Emergency Medicine; PCP Nurse Practitioner Family
DX: F32.9 Major depressive disorder, single episode, unspecified (principal); N40.0 Benign prostatic hyperplasia without lower urinary tract symptoms; I50.9 Heart failure, unspecified; I11.0 Hypertensive heart disease with heart failure; J44.9 Chronic obstructive pulmonary disease, unspecified; E11.40 Type 2 diabetes mellitus with diabetic neuropathy, unspecified; E11.51 Type 2 diabetes mellitus with diabetic peripheral angiopathy without gangrene; G20 Parkinson's disease; F43.10 Post-traumatic stress disorder, unspecified; G25.81 Restless legs syndrome; Z95.5 Presence of coronary angioplasty implant and graft; Z87.891 Personal history of nicotine dependence; Z79.82 Long term (current) use of aspirin; Z79.84 Long term (current) use of oral hypoglycemic drugs
CPT/HCPCS: 99281

== ENCOUNTER 2021-05-24 13:12 | Emergency (ER) | payer MEDICARE, MEDICAID, SELFPAY ==
--- NOTE | ~2021-05-24 | XR_ITS ---
EXAMINATION: XR chest 2V DATE: 05/24/2021 14:28 INDICATION: Chest pain and cough. TECHNIQUE: Frontal and lateral views of the chest were obtained. COMPARISON: Chest 2 views 04/16/2020 FINDINGS: A calcified left lung nodule is consistent with old granulomatous disease. No pleural effus ion or pneumothorax. The heart size is normal. IMPRESSION: 1. No acute cardiopulmonary disease. Reviewed, dictated and finalized at location A.
[2021-05-24 13:11] VITALS: BP 116/75; PULSE 83; RESP 16; TEMP 36.9; O2SAT 96
--- NOTE | 2021-05-24 13:18 | ECG_ITS ---
Measurements Intervals [place] Rate: 81 P: 49 MI: 174 QRS: 98 QRSD: 109 T: 59 QT: 388 QTc: 452 Interpretive Statements SINUS RHYTHM VENTRICULAR PREMATURE COMPLEXES RIGHT AXIS DEVIATION INCOMPLETE RIGHT BUNDLE BRANCH BLOCK BASELINE ARTIFACT- I, II, AVR, V3 BORDERLINE ECG Electronically Signed On 05-24-2021 13:26:04 CDT by Alonzo Asencio D.O.
[2021-05-24 13:26] VITALS: PULSE 81
--- NOTE | 2021-05-24 13:29 | ED.CHESTPAIN ---
HPI - Chest Pain General Chief Complaint: Chest Pain Stated Complaint: chest wall pain Time Seen by Provider: 05/24/21 13:18 History of Present Illness HPI narrative: 65 yo male w/ multiple medical problems presents tot ED c/o chest pain. He reports that he has had pleuritic chest pain for 2 weeks. This is associated with productive cough. He also says that he has had an increase in his chronic LE edema. Although apparently he was just using the chest pain as an excuse to get out of the house because he got into an argument with his daughter and would like to be placed in a custodial. Related Data Home Medications Medication Instructions Recorded Confirmed Trelegy Ellipta 1 inh INHALATION DAILY 12/31/19 04/16/20 Vascepa 2 g PO BID 12/31/19 04/16/20 albuterol sulfate [Ventolin HFA] 2 puff INHALATION Q4H PRN 12/31/19 04/16/20 aspirin 325 mg PO DAILY 12/31/19 04/16/20 buspirone 15 mg PO BID 12/31/19 04/16/20 clopidogrel 75 mg PO DAILY 12/31/19 04/16/20 ergocalciferol (vitamin D2) 1,250 mcg PO WEEKLY 12/31/19 04/16/20 [Vitamin D2] fenofibrate nanocrystallized 145 mg PO DAILY 12/31/19 04/16/20 furosemide 40 mg PO BID 12/31/19 04/16/20 gemfibrozil 600 mg PO BID 12/31/19 04/16/20 glimepiride 1 mg PO DAILY 12/31/19 04/16/20 ipratropium-albuterol 3 ml INHALATION Q4H PRN 12/31/19 04/16/20 isosorbide mononitrate 30 mg PO DAILY 12/31/19 04/16/20 isosorbide mononitrate 60 mg PO DAILY 12/31/19 04/16/20 levothyroxine 50 mcg PO DAILY 12/31/19 04/16/20 losartan 25 mg PO DAILY 12/31/19 04/16/20 nitroglycerin 0.3 mg SUBLINGUAL Q5M PRN 12/31/19 04/16/20 pregabalin 50 mg PO Q8H 12/31/19 04/16/20 sertraline 25 mg PO DAILY 12/31/19 04/16/20 spironolactone 25 mg PO DAILY 12/31/19 04/16/20 tamsulosin 0.4 mg PO DAILY 12/31/19 04/16/20 hydrocodone-acetaminophen [[place]] 1 tablet PO Q4H PRN 01/10/20 04/16/20 Allergies Allergy/AdvReac Type Severity Reaction Status Date / Time amoxicillin Allergy Unknown Rash Verified 03/06/21 19:20 Review of Systems Review of Systems: All systems reviewed & are unremarkable except as noted in HPI and below Constitutional: Constitutional: Reports chills, Denies fever(s) and Reports weakness Eyes: Eyes: Reports no additional eye complaints Cardiovascular: Cardiovascular: Reports chest pain Respiratory: Respiratory: Reports chest congestion, Reports cough and Reports dyspnea Gastrointestinal: Gastrointestinal: Reports abdominal pain and Denies vomiting Genitourinary: Genitourinary: Reports no additional male genitourinary complaints Musculoskeletal: Musculoskeletal: Reports back pain Neurologic: Denies dizziness, Denies focal weakness, Denies numbness and Reports weakness PMF Past Medical History Medical History Arthritis BPH (benign prostatic hyperplasia) CHF (congestive heart failure), NYHA class I Chronic back pain COPD (chronic obstructive pulmonary disease) DM2 (diabetes mellitus, type 2) Hepatitis Patient stated he was treated HTN (hypertension) Hyperlipidemia Hypothyroidism Neuropathy PAD (peripheral artery disease) Parkinson's disease Pilonidal cyst With multiple surgeries and nonhealing PTSD (post-traumatic stress disorder) Restless leg syndrome Surgical History Surgical History History of angioplasty Left leg History of cardiac catheterization S/P peripheral artery angioplasty with stent placement Family History Family History Father Diabetes mellitus Heart disease Mother Cancer Other Unknown family medical history Social History Social History Social History: The patient is . He had 3 children 1 has . Patient is a full code. He does not have a power trust and estates attorney. 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 Patient used to b
[2021-05-24 13:55] LABS: Basophils Percent Auto 0.5 % (0.2-1.2); Eosinophils Absolute Auto 0.1 K/mm3 (0-0.3); Eosinophils Percent Auto 2.3 % (0-4.4); Hemoglobin 11.7 g/dL (14.0-18.0); Immature Granulocyte Absolute 0.04 K/mm3 (0.00-0.031); Immature Granulocyte Percent A 0.6 % (0-0.5); Lymphocytes Absolute Auto 1.11 K/mm3 (0.9-3.2); Lymphocytes Percent Auto 17.8 % (18.3-44.2); Mean Corpuscular Hemoglobin 25.9 pg (26-34); Mean Corpuscular Volume 86.5 fl (80-100); Mean Platelet Volume 10.1 fl (7.4-10.4); Monocytes Absolute Auto 0.6 K/mm3 (0.1-0.6); Monocytes Percent Auto 9.2 % (2.6-8.5); Neutrophils Absolute Auto 4.3 K/mm3 (1.3-6.7); Neutrophils Percent Auto 69.6 % (45.5-73.1); Platelet Count Result 190 k/mm3 (150-375); Red Blood Count 4.51 M/mm3 (4.6-6.20); Red Cell Distribution Width 15.6 % (11.5-14.5); White Blood Count 6.2 K/mm3 (4.5-10.0)
[2021-05-24 14:07] LABS: INR 1.1; Prothrombin Time 14.1 Seconds (11.1-14.7)
[2021-05-24 14:08] LABS: Partial Thromboplastin Time 37.3 SECONDS (22.3-36.8)
[2021-05-24 14:08] LABS: Anion Gap 5 mmol/L (8-16); Blood Urea Nitrogen 21 mg/dL (9-20); Carbon Dioxide 35 mmol/L (22-30); Chloride 95 mmol/L (98-107); Estimated CRCL calculation 86 ml/min; Estimated Glomerular Filt Rate > 60; Glucose 108 mg/dL (65-110); Potassium 3.8 mmol/L (3.4-5.0); Sodium 135 mmol/L (137-145)
[2021-05-24 14:21] LABS: NT Pro B Type Natriuretic Pept 47 pg/mL (5-100); Troponin I < 0.012 ng/mL (0.000-0.034)
--- NOTE | 2021-05-24 14:23 | PC.NURSE ---
pts daughter/poa contacted ed. states pt has defiance disorder. states last time he requested nh placement he lasted 23 hours at [facility] before he demanded discharge. states pt is calm and cooperative until someone displeases him. states him and his daughter had a disagreement yesterday and thats what led pt to contact ems today. pt does have home health and thrives on the one on one attention.
--- NOTE | 2021-05-24 15:03 | PCCPR ---
Visited pt while in Emergency Room. Pt is requesting to go to [facility]. Pt reports having a daily caregiver from 9am-1pm. His daughter then comes in the afternoon for several hours. Pt does states his daughter would not want him to go to a shelter and gave permission to talk with her. Called Kala and she states she is concerned about him going to shelter due to Covid. She is coming to the hospital and would like to talk to her father and care coordination together before any shelter is contacted.
--- NOTE | 2021-05-24 16:08 | PCCCNOTE ---
Daughter Kala here with pt. Pt has changed his mind and wants to return home. Dr. padilla.
[2021-05-24 16:38] LABS: Troponin I < 0.012 ng/mL (0.000-0.034)
[2021-05-24 16:39] VITALS: BP 131/74; PULSE 84; RESP 20; O2SAT 95
--- NOTE | 2021-05-24 16:51 | PC.NURSE ---
made contact with [facility] to transfer pt home to [id number] [id number]. [facility] accepted with eta [id number]
[2021-05-24 17:33] VITALS: BP 101/63; PULSE 82; RESP 16; O2SAT 100
[2021-05-24] MEDS: ACETAMINOPHEN 500 MG TABLET 1000 MG PO (17:33)
--- NOTE | 2021-05-24 17:50 | PC.NURSE ---
discharge instructions given to daughter/poa. awaiting [facility] arrival to take pt back to personal residence.
[2021-05-24 19:07] VITALS: BP 108/66; PULSE 82; RESP 20; O2SAT 96
--- NOTE | 2021-05-24 19:16 | PC.NURSE ---
called [facility] for ETA update. ETA [phone]
--- NOTE | 2021-05-24 19:18 | PC.NURSE ---
called [facility] to request transport. [facility] accepted.
--- NOTE | 2021-05-24 19:43 | PC.NURSE ---
cancelled [facility]
--- NOTE | 2021-05-24 19:48 | PC.NURSE ---
[facility] here.
[2021-05-24 19:49] VITALS: BP 116/63; PULSE 73; RESP 19; O2SAT 98
== END 2021-05-24 20:03 | disposition home or self-care (01) ==
PROVIDERS: Family Medicine; Emergency Provider Emergency Medicine
DX: R07.81 Pleurodynia (principal); N40.0 Benign prostatic hyperplasia without lower urinary tract symptoms; I50.9 Heart failure, unspecified; I11.0 Hypertensive heart disease with heart failure; J44.9 Chronic obstructive pulmonary disease, unspecified; E03.9 Hypothyroidism, unspecified; E11.40 Type 2 diabetes mellitus with diabetic neuropathy, unspecified; E11.51 Type 2 diabetes mellitus with diabetic peripheral angiopathy without gangrene; G20 Parkinson's disease; G25.81 Restless legs syndrome; M19.90 Unspecified osteoarthritis, unspecified site; F43.10 Post-traumatic stress disorder, unspecified; Z95.5 Presence of coronary angioplasty implant and graft; Z87.891 Personal history of nicotine dependence; I49.3 Ventricular premature depolarization; I45.10 Unspecified right bundle-branch block; Z79.84 Long term (current) use of oral hypoglycemic drugs
CPT/HCPCS: 36415; 71046; 80048; 83880; 84484; 85025; 85610; 85730; 93005; 99284; A9270

== ENCOUNTER 2021-08-20 14:35 | Emergency (ER) | payer OTHER, SELFPAY ==
[2021-08-20 14:43] VITALS: BP 105/78; PULSE 83; RESP 20; TEMP 36.7; O2SAT 97
[2021-08-20 15:53] LABS: Basophils Percent Auto 0.5 % (0.2-1.2); Eosinophils Absolute Auto 0.3 K/mm3 (0-0.3); Eosinophils Percent Auto 3.1 % (0-4.4); Hematocrit 36.7 % (42.0-52.0); Hemoglobin 11.3 g/dL (14.0-18.0); Immature Granulocyte Absolute 0.05 K/mm3 (0.00-0.031); Immature Granulocyte Percent A 0.6 % (0-0.5); Lymphocytes Absolute Auto 1.35 K/mm3 (0.9-3.2); Lymphocytes Percent Auto 16.7 % (18.3-44.2); Mean Corpuscular HGB Conc 30.8 g/dl (32-36); Mean Corpuscular Hemoglobin 25.8 pg (26-34); Mean Corpuscular Volume 83.8 fl (80-100); Mean Platelet Volume 10.7 fl (7.4-10.4); Monocytes Absolute Auto 0.7 K/mm3 (0.1-0.6); Monocytes Percent Auto 8.1 % (2.6-8.5); Neutrophils Absolute Auto 5.7 K/mm3 (1.3-6.7); Platelet Count Result 241 k/mm3 (150-375); Red Blood Count 4.38 M/mm3 (4.6-6.20); Red Cell Distribution Width 16.4 % (11.5-14.5); White Blood Count 8.1 K/mm3 (4.5-10.0)
[2021-08-20 16:02] LABS: Blood Urea Nitrogen 18 mg/dL (9-20); Calcium 9.4 mg/dL (8.4-10.2); Carbon Dioxide > 40 mmol/L (22-30); Chloride 93 mmol/L (98-107); Estimated CRCL calculation 86 ml/min; Estimated Glomerular Filt Rate > 60; Glucose 142 mg/dL (65-110); Potassium 3.9 mmol/L (3.4-5.0); Sodium 137 mmol/L (137-145)
--- NOTE | 2021-08-20 16:02 | ED.EXTPRO ---
HPI - Extremity Problem General Chief complaint: Extremity Problem,Nontraumatic Stated complaint: Left soto wound Time Seen by Provider: 08/20/21 14:55 History of Present Illness HPI Narrative: Patient is a 66-year-old male who presents ER with lower extremity edema. Per patient daughter edema is chronic and the only changes that he had a small blister that formed today and then started draining. There is a small amount of brown fluid that came out with the clear fluid initially which concerned them. No known trauma. Patient is chronically bedbound. He has a home health nurse that comes out and he is working on getting placement at [facility]. Patient has no fevers or chills or sweats. No redness to the leg or lymphangitic streaking. No chest pain or chest pressure. Patient has no other complaints or concerns. Related Data Home Medications Medication Instructions Recorded Confirmed Trelegy Ellipta 1 inh INHALATION DAILY 12/31/19 04/16/20 Vascepa 2 g PO BID 12/31/19 04/16/20 albuterol sulfate [Ventolin HFA] 2 puff INHALATION Q4H PRN 12/31/19 04/16/20 aspirin 325 mg PO DAILY 12/31/19 04/16/20 buspirone 15 mg PO BID 12/31/19 04/16/20 clopidogrel 75 mg PO DAILY 12/31/19 04/16/20 ergocalciferol (vitamin D2) 1,250 mcg PO WEEKLY 12/31/19 04/16/20 [Vitamin D2] fenofibrate nanocrystallized 145 mg PO DAILY 12/31/19 04/16/20 furosemide 40 mg PO BID 12/31/19 04/16/20 gemfibrozil 600 mg PO BID 12/31/19 04/16/20 glimepiride 1 mg PO DAILY 12/31/19 04/16/20 ipratropium-albuterol 3 ml INHALATION Q4H PRN 12/31/19 04/16/20 isosorbide mononitrate 30 mg PO DAILY 12/31/19 04/16/20 isosorbide mononitrate 60 mg PO DAILY 12/31/19 04/16/20 levothyroxine 50 mcg PO DAILY 12/31/19 04/16/20 losartan 25 mg PO DAILY 12/31/19 04/16/20 nitroglycerin 0.3 mg SUBLINGUAL Q5M PRN 12/31/19 04/16/20 pregabalin 50 mg PO Q8H 12/31/19 04/16/20 sertraline 25 mg PO DAILY 12/31/19 04/16/20 spironolactone 25 mg PO DAILY 12/31/19 04/16/20 tamsulosin 0.4 mg PO DAILY 12/31/19 04/16/20 hydrocodone-acetaminophen [[place]] 1 tablet PO Q4H PRN 01/10/20 04/16/20 Allergies Allergy/AdvReac Type Severity Reaction Status Date / Time amoxicillin Allergy Unknown Rash Verified 03/06/21 19:20 Review of Systems Review of Systems: All systems reviewed & are unremarkable except as noted in HPI and below Constitutional: Constitutional: Denies chills, Denies fever(s) and Denies weakness ENT: Denies nasal congestion and Denies sore throat Cardiovascular: Cardiovascular: Denies chest pain, Denies rapid heart rate and Denies radiating jaw, neck or arm pain Respiratory: Respiratory: Denies cough, Denies dyspnea and Denies wheezing Musculoskeletal: Musculoskeletal: Denies arthralgias, Denies joint swelling and Denies muscle cramps Comments: Lower extremity edema with some weeping on the left side. Integumentary/Breasts: Skin/Breast: Denies erythema and Denies rash Neurologic: Comments: Peripheral neuropathy that is chronic. [facility] Past Medical History Medical History (Updated 08/20/21 @ 17:37 by Paul Ferrer MD) Arthritis BPH (benign prostatic hyperplasia) CHF (congestive heart failure), NYHA class I Chronic back pain COPD (chronic obstructive pulmonary disease) DM2 (diabetes mellitus, type 2) Hepatitis Patient stated he was treated HTN (hypertension) Hyperlipidemia Hypothyroidism Neuropathy PAD (peripheral artery disease) Parkinson's disease Pilonidal cyst With multiple surgeries and nonhealing PTSD (post-traumatic stress disorder) Restless leg syndrome Surgical History Surgical History History of angioplasty Left leg History of cardiac catheterization S/P peripheral artery angioplasty with stent placement Family History Family History Father Diabetes mellitus Heart disease Mother Cancer Other Unknown family medical history Soc
[2021-08-20 16:11] LABS: NT Pro B Type Natriuretic Pept 53 pg/mL (5-100)
[2021-08-20 16:46] VITALS: BP 112/76; PULSE 87; RESP 18; O2SAT 99
--- NOTE | 2021-08-20 18:24 | PC.NURSE ---
made contact with [facility] to transfer pt back home [place] will be calling back with eta
[2021-08-20 19:29] VITALS: BP 122/70; PULSE 70; RESP 18; O2SAT 99
== END 2021-08-20 19:31 | disposition home or self-care (01) ==
PROVIDERS: Emergency Provider Emergency Medicine; PCP Physician Assistant
DX: R60.0 Localized edema (principal); I50.9 Heart failure, unspecified; I11.0 Hypertensive heart disease with heart failure; J44.9 Chronic obstructive pulmonary disease, unspecified; E78.5 Hyperlipidemia, unspecified; E11.40 Type 2 diabetes mellitus with diabetic neuropathy, unspecified; E11.51 Type 2 diabetes mellitus with diabetic peripheral angiopathy without gangrene; G20 Parkinson's disease; G25.81 Restless legs syndrome; N40.0 Benign prostatic hyperplasia without lower urinary tract symptoms; M19.90 Unspecified osteoarthritis, unspecified site; Z79.82 Long term (current) use of aspirin; F43.10 Post-traumatic stress disorder, unspecified; Z95.5 Presence of coronary angioplasty implant and graft; Z87.891 Personal history of nicotine dependence; Z79.84 Long term (current) use of oral hypoglycemic drugs
CPT/HCPCS: 36415; 80048; 83880; 85025; 99283

== ENCOUNTER 2021-09-22 11:55 | Emergency (ER) | payer OTHER, SELFPAY ==
[2021-09-22] VITALS (74 sets, daily range): BP systolic 52–163; BP diastolic 31–81; PULSE 69–116; RESP 13–22; TEMP 36.2; O2SAT 70–100
--- NOTE | ~2021-09-22 | CT_ITS ---
EXAMINATION: CT brain wo con DATE: 09/22/2021 14:59 INDICATION: Weakness. TECHNIQUE: Computed tomography (CT) of the head was performed without intravenous contrast. The dose- length product was 681.00 mGy-cm. Automated exposure control and iterative reconstruction technique w ere employed. COMPARISON: None FINDINGS: There is mild mucosal thickening of the right sphenoid and ethmoid sinuses. No acute intrac ranial hemorrhage, infarction, mass or mass effect. Basilar cisterns are patent. No ventriculomegaly or midline shift. No depressed skull fractures. No acute infarction, hemorrhage or mass. IMPRESSION: 1. No acute intracranial abnormality. 2: Mild sinus disease. Reviewed, dictated and finalized at location A. RSE UNIT OPERATOR
--- NOTE | ~2021-09-22 | XR_ITS ---
EXAMINATION: XR chest 1V portable 09/22/2021 12:20 INDICATION: Shortness of breath PROCEDURE: AP portable chest COMPARISON: Comparison to multiple prior studies sequentially, with oldest reviewed study dated 01/10. FINDINGS: The lungs are clear. The cardiomediastinal silhouette is within normal limits. There are no pleural effusions. There is no pneumothorax suspected. IMPRESSION: 1: NO ACUTE CARDIOPULMONARY DISEASE. Reviewed, dictated and finalized at location A. ER COOK
--- NOTE | 2021-09-22 12:07 | ECG_ITS ---
Measurements Intervals [place] Rate: 81 P: 61 NH: 185 QRS: 106 QRSD: 116 T: 74 QT: 362 QTc: 422 Interpretive Statements SINUS RHYTHM FREQUENT VENTRICULAR PREMATURE COMPLEXES RIGHT AXIS DEVIATION INCOMPLETE RIGHT BUNDLE BRANCH BLOCK BASELINE ARTIFACT- I, II, III, AVR, AVL, AVF, V1-V3, V6 ABNORMAL ECG Electronically Signed On 09-22-2021 15:21:05 [employer] by Alonzo Asencio D.O.
[2021-09-22 12:09] LABS: Glucose Point of Care 52 mg/dl (65-105)
[2021-09-22 12:40] LABS: Base Excess ABG 0.3 mEq/l (+/-2.0); HCO3 ABG 26.5 mEq/l (22.0-26.0); PCO2 ABG 49.9 mmHg (35.0-45.0); PO2 ABG 89.4 mmHg (80.0-100.0); pH ABG 7.343 (7.350-7.450)
[2021-09-22] MEDS: IPRATROPIUM BR 0.02% INH SOLN 0.5 MG/2.5 ML VIAL INHALATION (12:40)
[2021-09-22] MEDS: ALBUTEROL SULFATE NEB 2.5 MG/0.5 ML INH 5 MG INHALATION (12:40)
--- NOTE | 2021-09-22 12:40 | ED.SOB ---
HPI - SOB/Dyspnea General Chief Complaint: Shortness of Breath/Dyspnea Stated Complaint: low bp Time Seen by Provider: 09/22/21 12:02 Source: patient, EMS, RN notes reviewed and old records reviewed Mode of arrival: EMS Limitations: clinical condition History of Present Illness HPI Narrative: This is 66 year old male with history of DM, COPD, CHF, chronic weakness, CAD who presents from the group home for evaluation of low blood sugar, weakness and difficulty breathing. EMS found patient to have Finger stick blood sugar in the 30s, so he was started D10 infusion. Patient blood sugar has been found to be low again in ER but patient is awake, talking and joking. He is complaining about generalized weakness and bilateral leg pain. He states he does not walk and he gets worsening leg pain when his legs are stuck in on position. He denies chest pain, nausea, vomiting, sob or headache. Patient wears 3 L NC chronically, and it has been reported he was 87 % on his NC. His daughter tested positive for covid 2 days and her son has influenza A. Patient has had 2 negative rapid covid test. Related Data Home Medications Medication Instructions Recorded Confirmed Trelegy Ellipta 1 inh INHALATION DAILY 12/31/19 04/16/20 albuterol sulfate [Ventolin HFA] 2 puff INHALATION Q4H PRN 12/31/19 04/16/20 aspirin 325 mg PO DAILY 12/31/19 04/16/20 buspirone 15 mg PO BID 12/31/19 04/16/20 clopidogrel 75 mg PO DAILY 12/31/19 04/16/20 ergocalciferol (vitamin D2) 1,250 mcg PO WEEKLY 12/31/19 04/16/20 [Vitamin D2] fenofibrate nanocrystallized 145 mg PO DAILY 12/31/19 04/16/20 furosemide 40 mg PO BID 12/31/19 04/16/20 gemfibrozil 600 mg PO BID 12/31/19 04/16/20 glimepiride 1 mg PO DAILY 12/31/19 04/16/20 icosapent ethyl [Vascepa] 2 g PO BID 12/31/19 04/16/20 ipratropium-albuterol 3 ml INHALATION Q4H PRN 12/31/19 04/16/20 isosorbide mononitrate 30 mg PO DAILY 12/31/19 04/16/20 isosorbide mononitrate 60 mg PO DAILY 12/31/19 04/16/20 levothyroxine 50 mcg PO DAILY 12/31/19 04/16/20 losartan 25 mg PO DAILY 12/31/19 04/16/20 nitroglycerin 0.3 mg SUBLINGUAL Q5M PRN 12/31/19 04/16/20 pregabalin 150 mg PO BID 12/31/19 04/16/20 sertraline 25 mg PO DAILY 12/31/19 04/16/20 spironolactone 25 mg PO DAILY 12/31/19 04/16/20 tamsulosin 0.4 mg PO DAILY 12/31/19 04/16/20 hydrocodone-acetaminophen [[place]] 1 tablet PO Q4H PRN 01/10/20 04/16/20 apixaban [Eliquis] 5 mg BID 09/22/21 09/22/21 budesonide-formoterol [Symbicort] INHALATION 09/22/21 cyanocobalamin (vitamin B-12) 1,000 mcg PO ACHS 09/22/21 famotidine 20 mg BID 09/22/21 09/22/21 Allergies Allergy/AdvReac Type Severity Reaction Status Date / Time amoxicillin Allergy Unknown Rash Verified 09/22/21 13:27 Review of Systems Review of Systems: All systems reviewed & are unremarkable except as noted in HPI and below Constitutional: Constitutional: Denies chills, Denies fever(s) and Reports weakness ENT: Reports nasal congestion and Denies sore throat Cardiovascular: Cardiovascular: Denies chest pain Respiratory: Respiratory: Reports cough and Denies dyspnea Gastrointestinal: Gastrointestinal: Denies abdominal pain, Denies nausea and Reports vomiting Musculoskeletal: Musculoskeletal: Reports arthralgias Neurologic: Denies headache(s), Reports numbness and Reports weakness PMFSH Past Medical History Medical History (Updated 09/23/21 @ 01:10 by Neto Larkin MD) Arthritis BPH (benign prostatic hyperplasia) CHF (congestive heart failure), NYHA class I Chronic back pain COPD (chronic obstructive pulmonary disease) DM2 (diabetes mellitus, type 2) Hepatitis Patient stated he was treated HTN (hypertension) Hyperlipidemia Hypothyroidism Neuropathy PAD (peripheral artery disease) Parkinson's disease Pilonidal cyst With multiple surgeries and nonhealing PTSD (post-traumatic stress disorder) Restless leg syndrome Surgical History Surgical History (Reviewed 09/22/21 @ 17:51 by Lilia Kern
[2021-09-22 12:41] LABS: Alveolar/Arterial O2 Gradient 109.4 mmHg; Carboxyhemoglobin 0.2 % THb (0-2.0); Methemoglobin ABG 0.2 %THb (0-1.5); Oxygen Content ABG 14.7 %vol (16.0-22.0); Oxygen Saturation ABG 96.3 % (95.0-100.0); Oxyhemoglobin 95.2 % THb (90.0-100.0); Reduced Hemoglobin 4.4 %THb (0-5.0); Total Hemoglobin 10.9 g/dL (12.0-18.0)
[2021-09-22 12:42] LABS: Device NASAL CANNULA; Fractional Inspired Oxygen 36 %; Modified Allen's Test Pass; PO2 FiO2 Ratio Arterial Blood 2.48 %; Site Drawn RIGHT RADIAL
[2021-09-22 13:09] LABS: Hemoglobin 10.1 g/dL (14.0-18.0); Mean Corpuscular HGB Conc 30.6 g/dl (32-36); Mean Corpuscular Hemoglobin 24.2 pg (26-34); Mean Corpuscular Volume 78.9 fl (80-100); Mean Platelet Volume 10.2 fl (7.4-10.4); Platelet Count Result 208 k/mm3 (150-375); Red Blood Count 4.18 M/mm3 (4.6-6.20); Red Cell Distribution Width 17.1 % (11.5-14.5); White Blood Count 12.5 K/mm3 (4.5-10.0)
[2021-09-22 13:17] LABS: Lactic Acid Reflex 2.1 mmol/L (0.7-2.1)
[2021-09-22 13:18] LABS: Alanine Aminotransferase 20 U/L (4-50); Albumin Level 3.4 g/dL (3.5-5.1); Alkaline Phosphatase 48 U/L (38-126); Anion Gap 10 mmol/L (8-16); Aspartate Amino Transferase 36 U/L (17-59); Bilirubin,Total 0.2 mg/dL (0.2-1.3); Blood Urea Nitrogen 53 mg/dL (9-20); Calcium 8.1 mg/dL (8.4-10.2); Carbon Dioxide 28 mmol/L (22-30); Chloride 88 mmol/L (98-107); Estimated Glomerular Filt Rate 12; Glucose 107 mg/dL (65-110); Potassium 4.4 mmol/L (3.4-5.0); Sodium 126 mmol/L (137-145)
[2021-09-22] MEDS: SODIUM CHLORIDE 0.9% IV 1,000 ML 999 ML IV CONT (13:19)
[2021-09-22 13:21] LABS: Glucose Point of Care 87 mg/dl (65-105)
[2021-09-22 13:26] LABS: INR 1.7; Prothrombin Time 19.8 Seconds (11.1-14.7)
[2021-09-22 13:27] LABS: Partial Thromboplastin Time 49.6 SECONDS (22.3-36.8)
[2021-09-22 13:30] LABS: NT Pro B Type Natriuretic Pept 1320 pg/mL (5-100); Troponin I < 0.012 ng/mL (0.000-0.034)
[2021-09-22 13:42] LABS: Band Neutrophils Percent 9 % (0-6); Lymphocytes Absolute Manual 0.12 K/mm3 (1.1-4.5); Lymphocytes Percent Manual 1 % (18-44); Neutrophils Absolute Manual 11.37 K/mm3 (1.3-6.7); Neutrophils Percent Manual 82 % (46-73); Total Cells Counted 100
[2021-09-22 13:43] LABS: Anisocytosis 1+ (NORMAL); Hypochromasia 1+ (NORMAL); Monocytes Percent Manual 8 % (3-9); Platelet Estimate Adequate (Adequate)
[2021-09-22 14:12] LABS: Add Urine Microscopic? NO; Appearance Urine Clear (Clear); Bilirubin Urine Negative (Negative); Blood Urine Negative (Negative); Color Urine Yellow (Yellow); Glucose Urine UA Negative (Negative); Ketones Urine Negative (Negative); Leukocyte Esterase Ur Negative LEU/UL (Negative); Nitrate Urine Negative (Negative); Protein Urine Negative (Negative); Specific Grav Ur 1.015 (1.001-1.035); Urobilinogen Urine Negative mg/dL (<2.0)
[2021-09-22 15:40] LABS: Glucose Point of Care 29 mg/dl (65-105)
[2021-09-22] MEDS: DOPamine 400 MG/D5W 250 ML 400 MG/250 ML BAG 28.74 MG IV CONT (15:46)
[2021-09-22] MEDS: DEXTROSE 50% 25 GM/50 ML SYRINGE IV PUSH (15:46)
[2021-09-22] MEDS: DEXTROSE 10% 1,000 ML 100 ML IV CONT (16:01)
[2021-09-22 16:05] LABS: Reflex Lactic Acid Yes or No Add Lactic
[2021-09-22 16:09] LABS: Glucose Point of Care 98 mg/dl (65-105)
--- NOTE | 2021-09-22 16:21 | PC.NURSE ---
Pt unresponsive to sternal rub or verbal stimuli. ERP aware.
--- NOTE | 2021-09-22 16:41 | PC.NURSE ---
Suctioned using yankeur with return thick white sputum. Minimal gag reflex with suctioning.
[2021-09-22 16:47] LABS: Alveolar/Arterial O2 Gradient 293.5 mmHg; Base Excess ABG 0.3 mEq/l (+/-2.0); Fractional Inspired Oxygen 70 %; HCO3 ABG 27.1 mEq/l (22.0-26.0); Oxygen Content ABG 16.4 %vol (16.0-22.0); Oxygen Saturation ABG 98.7 % (95.0-100.0); Oxyhemoglobin 97.8 % THb (90.0-100.0); PCO2 ABG 53.9 mmHg (35.0-45.0); PO2 ABG 147.7 mmHg (80.0-100.0); PO2 FiO2 Ratio Arterial Blood 2.11 %; Total Hemoglobin 11.7 g/dL (12.0-18.0); pH ABG 7.319 (7.350-7.450)
[2021-09-22 16:50] LABS: Device NON-INVASIVE VENT; Modified Allen's Test Pass; Site Drawn RIGHT RADIAL
[2021-09-22 16:52] LABS: Non-Invasive Expiratory Pressure 8 CMH2O; Non-Invasive Inspiratory Pressure 18 CMH2O; Non-Invasive Vent Rate 20 /MIN
[2021-09-22 16:54] LABS: EDCOVIDSCREEN Negative (Negative)
--- NOTE | 2021-09-22 17:03 | PC.NURSE ---
Refusing BIPAP. Pt more awake. Alert x3. Placed on 4l nc.
--- NOTE | 2021-09-22 17:12 | PC.NURSE ---
Pt refusing any further treatment and [facility] to [facility]. Pt aware of possible and voices understanding.
--- NOTE | 2021-09-22 17:13 | PC.NURSE ---
Care coordination called to evaluate for hospice.
--- NOTE | 2021-09-22 17:42 | PCCCNOTE ---
Addendum entered by Cindy Jimenez RN 09/22/21 21:30: ER director got permission from ethics committee for daughter to come up. Admitting nurse Lisa from [facility] has spoken with daughter for equipment. Legal Advisor has spoken with Lisa, and Lisa would like be called once ambulance has arrived so she can meet and admit at home. Addendum entered by Cindy Jimenez RN 09/22/21 20:48: Consents are signed with [facility] via email with dtr Kala GREGORY. Addendum entered by Cindy Jimenez RN 09/22/21 18:23: Spoke with daughter Kala and advised that [facility] are not able to admit till Monday. Provided other names of agencies and dtr agreeable to contact [facility]. Spoke with Ky at [facility], took all details and will have nutrition counselor team reach out to daughter and call memory care program director back. Original Note: Called to meet with patient regarding hospice. Spoke with provider and then with patient, patient verbalizes frustration as he is in pain and wants to go home. Called to daughter Kala, Kala says that she wants hospice and she wants to bring him home and she will help take care of him. Kala states that they would like [facility]. Kala is tearful and would like a medical update as she didn't the conversation from before. Kala states that she just tested positive for Covid. Provided phone number for Kala to call memory care program director. Phone call to [facility] spoke w/ intake and they will have nutrition counselor team call in 10 minutes. Received a phone call from Melvina at [facility] and they can not admit tonight and looks like the earliest will be Monday. Advised that we will need to find another hospice agency.
[2021-09-22] MEDS: PREGABALIN (*CRX) 75 MG CAPSULE 150 MG PO (20:09)
[2021-09-22 20:37] LABS: Lactic Acid 1.3 mmol/L (0.7-2.1)
--- NOTE | 2021-09-22 21:18 | PC.NURSE ---
Pt moved to RM 12 on hospital bed due to awaiting hospice. Family at bedside. Discussed POC.
--- NOTE | 2021-09-22 22:25 | PC.NURSE ---
called [facility] for transport home.
--- NOTE | 2021-09-22 23:50 | PC.NURSE ---
called [facility] for ETA update. ETA [id number]
[2021-09-23 01:00] VITALS: BP 88/54; PULSE 81; RESP 21
== END 2021-09-23 01:35 | disposition hospice, home (50) ==
PROVIDERS: Emergency Provider General Practice; PCP Physician Assistant
DX: A41.9 Sepsis, unspecified organism (principal); R65.21 Severe sepsis with septic shock; N17.9 Acute kidney failure, unspecified; J96.00 Acute respiratory failure, unspecified whether with hypoxia or hypercapnia; J10.1 Influenza due to other identified influenza virus with other respiratory manifestations; Z20.822 Contact with and (suspected) exposure to COVID-19; N40.0 Benign prostatic hyperplasia without lower urinary tract symptoms; I50.9 Heart failure, unspecified; J44.9 Chronic obstructive pulmonary disease, unspecified; I11.0 Hypertensive heart disease with heart failure; E78.5 Hyperlipidemia, unspecified; E03.9 Hypothyroidism, unspecified; E11.40 Type 2 diabetes mellitus with diabetic neuropathy, unspecified; E11.51 Type 2 diabetes mellitus with diabetic peripheral angiopathy without gangrene; G20 Parkinson's disease; G25.81 Restless legs syndrome; Z79.01 Long term (current) use of anticoagulants; F43.10 Post-traumatic stress disorder, unspecified; M19.90 Unspecified osteoarthritis, unspecified site; Z79.84 Long term (current) use of oral hypoglycemic drugs; I49.3 Ventricular premature depolarization; R94.31 Abnormal electrocardiogram [ECG] [EKG]; I45.10 Unspecified right bundle-branch block; J32.9 Chronic sinusitis, unspecified
CPT/HCPCS: 36415; 36600; 70450; 71045; 80053; 81003; 82375; 82805; 82948; 83050; 83605; 83880; 84484; 85025; 85610; 85730; 87040; 87426; 87804; 93005; 94002; 94640; 96361; 96365; 96366; 96368; 96375; 99291; A9270; C9803; J1265; J7030; U0003; U0005